=== PATIENT | male | born 1945 | race Caucasian/White ===

== ENCOUNTER 2017-08-25 16:49 | Emergency (ER) | payer MEDICARE ==
[2017-08-25 17:50] LABS: ABS Basophils 0.1 10^3/ul (0-0.2); ABS Eosinophils 0.4 10^3/ul (0-0.6); ABS Lymphocytes 2.7 10^3/ul (1.0-4.8); ABS Monocytes 1.1 10^3/ul (0-0.8); ABS Neutrophils 3.9 10^3/ul (1.5-7.7); ABS Nucleated RBC 0 10^3/ul; Eosinophil % 5.3 % (0-6); Hematocrit 43 % (42-52); Hemoglobin 14.5 g/dl (14.0-18.0); Lymphocyte % 33.2 % (25-47); Mean Corpuscular HGB Conc 33 g/dl (31-36); Mean Corpuscular Hemoglobin 31 pg (27-31); Mean Corpuscular Volume 92 fL (80-94); Mean Platelet Volume 9 um3 (7.4-10.4); Nucleated Red Blood Cells % 0; Platelet Count 220 10^3/ul (150-450); Red Blood Count 4.71 10^6/ul (4.0-5.4); Red Cell Distribution Width 15 % (10.5-15); White Blood Count 8.2 10^3/ul (3.5-10.8)
[2017-08-25 17:59] LABS: INR 2.12 (0.77-1.02)
--- NOTE | 2017-08-25 18:04 | RAD ---
HISTORY: Chest pain COMPARISONS: January 12, 2017, April 25, 2016 VIEWS: 1: frontal portable view of the chest at 5:25 PM FINDINGS: LINES AND TUBES: None. CARDIOMEDIASTINAL SILHOUETTE: The aorta is tortuous. This is stable from previous examinations. The cardiomediastinal silhouette is otherwise normal for portable technique. PLEURA: The costophrenic angles are sharp. No pleural abnormalities are noted. LUNG PARENCHYMA: The lungs are clear. ABDOMEN: The upper abdomen is clear. There is no subphrenic gas. BONES AND SOFT TISSUES: No bone or soft tissue abnormalities are noted. IMPRESSION: NO ACTIVE CARDIOPULMONARY DISEASE.
[2017-08-25 18:05] LABS: EGFR Non-African American 15.4 (>60)
--- NOTE | 2017-08-25 18:49 | ED ---
Kym Reyes Nilda, scribed for Deuce Torrez MD on 08/25/17 at 1713 . HPI Chest Pain - HPI Summary HPI Summary: This patient is a 72 year old M presenting to [facility] accompanied by with a chief complaint of constant diffuse, non-radiating CP (pressure) that began about 2 hours ago and has presently resolved. The patient rates the pain 7/10 in severity. Symptoms aggravated by nothing and alleviated by spontaneous resolution. Patient reports SOB (since yesterday), edema, and palpitations ( since yesterday). Medications include Warfarin and Lasix. - History of Current Complaint Chief Complaint: EDChestPainROMI Time Seen by Provider: 08/25/17 17:00 Hx Obtained From: Patient Onset/Duration: Started Hours Ago, Still Present Timing: Constant Initial Severity: Severe Current Severity: None Pain Intensity: 7 Pain Scale Used: 0-10 Numeric Chest Pain Location: Diffuse Chest Pain Radiates: No Character: Pressure/Squeezing Aggravating Factor(s): Nothing Alleviating Factor(s): Spontaneous Resolution Associated Signs and Symptoms: Positive: Other: - SOB, edema, palpitations - Additional Pertinent History Primary Care Physician: FOREIGN - Allergy/Home Medications Allergies/Adverse Reactions: Allergies Allergy/AdvReac Type Severity Reaction Status Date / Time zolpidem [From Ambien] Allergy Hallucinati Verified 08/25/17 17:12 ons MS Iodinated Diagnostic AdvReac See Comment Verified 09/26/14 19:57 Agents [Iodinated Diagnostic Agents] Home Medications: Home Medications Acetaminophen TAB* [Tylenol TAB*] 325 mg PO Q4H PRN 08/25/17 [History Confirmed 08/25/17] Beclomethasone 80 MCG MDI(NF) [Qvar 80 MCG MDI(NF)] 1 puff INH BID 08/25/17 [ History Confirmed 08/25/17] Carvedilol TAB* [Coreg TAB*] 6.25 mg PO BID 08/25/17 [History Confirmed 08/25/17 ] Cetirizine* [ZyrTEC 10 MG TAB*] 10 mg PO DAILY PRN 08/25/17 [History Confirmed 08/25/17] Dronedarone TAB* [Multaq TAB*] 400 mg PO BID 08/25/17 [History Confirmed ] Eszopiclone TAB(NF) [Lunesta TAB(NF)] 2 mg PO DAILY 08/25/17 [History Confirmed 08/25/17] Furosemide TAB* [Lasix TAB*] 20 mg PO DAILY 08/25/17 [History Confirmed 08/25/17 ] Meclizine TAB* [Antivert 12.5 TAB*] 25 mg PO TID 08/25/17 [History Confirmed 02/02] PMH/Surg Hx/FS Hx/Imm Hx Cardiovascular History: Reports: Hx Hypercholesterolemia, Hx Hypertension, Other Cardiovascular Problems/Disorders - HIGH CHOLESTEROL Respiratory History: Reports: Hx Asthma, Hx Sleep Apnea GI History: Reports: Hx Gastroesophageal Reflux Disease History: Reports: Hx Benign Prostatic Hyperplasia, Hx Chronic Renal Failure, Other Problems/Disorders - renal artery stenosis (stents) Denies: Hx Dialysis, Hx Kidney Infection, Hx Kidney Stones Musculoskeletal History: Reports: Hx Back Problems, Hx Orthopedic Injury - right foot ligament revision Sensory History: Reports: Hx Cataracts - surgery to both eyes, Hx Contacts or Glasses Denies: Hx Eye Injury, Hx Deafness Opthamlomology History: Reports: Hx Cataracts - surgery to both eyes, Hx Contacts or Glasses Denies: Hx Eye Injury Neurological History: Reports: Other Neuro Impairments/Disorders - L4-L5 laminectomy Psychiatric History: Reports: Hx Anxiety - Surgical History Surgery Procedure, Year, and Place: L4-L5 LAMINECTOMY 1975. Cataracts out B/l - Immunization History Date of Tetanus Vaccine: Remote Date of Influenza Vaccine: 2014 Infectious Disease History: No Infectious Disease History: Reports: Hx Shingles Denies: Traveled Outside the [place] in Last 30 Days - Family History Known Family History: Positive: Other - renal disease - Social History Alcohol Use: Rare Hx Substance Use: No Substance Use Type: Reports: None Hx Tobacco Use: No Smoking Status (MU): Never Smoked Tobacco Review of Systems Positive: Palpitations, Chest Pain - pressure, resolved Positive: Shortness Of Breath Positive: Edema All Other Systems Reviewed And Are Negative: Yes Physical Exam - Summary Physical Exam Summary: VITAL SIGNS: Reviewed. GENERAL: Patient is an obese male who is lying comfortable in the stretcher. Patient is not in any acute respiratory distress. HEAD AND FACE: No signs of trauma. No ecchymosis, hematomas or skull depressions. No sinus tenderness. EYES: PERRLA, EOMI x 2, No injected conjunctiva, no nystagmus. EARS: Hearing grossly intact. Ear canals and tympanic membranes are within normal limits. MOUTH: Oropharynx within normal limits. NECK: Supple, trachea is midline, no adenopathy, no JVD, no carotid bruit, no c- spine tenderness, neck with full ROM. CHEST: Symmetric, no tenderness at palpation LUNGS: Clear to auscultation bilaterally. No wheezing or crackles. CVS: IrRegular rate and rhythm, S1 and S2 present, no murmurs or gallops appreciated. ABDOMEN: Soft, non-tender. No signs of distention. No rebound no guarding, and no masses palpated. Bowel sounds are normal. EXTREMITIES: FROM in all major joints, no edema, no cyanosis or clubbing. NEURO: Alert and oriented x 3. No acute neurological deficits. Speech is normal and follows commands. SKIN: Dry and warm Triage Information Reviewed: Yes Vital Signs On Initial Exam: Initial Vitals Temp Pulse Resp BP Pulse Ox 99.0 F 73 18 169/91 98 08/25/17 16:52 08/25/17 16:52 08/25/17 16:52 08/25/17 16:52 08/25/17 16:52 Vital Signs Reviewed: Yes Diagnostics - Vital Signs Vital Signs Temp Pulse Resp BP Pulse Ox 08/25/17 17:07 98 08/25/17 16:52 99.0 F 73 18 169/91 98 - Laboratory Result Diagrams: 08/25/17 17:35 08/25/17 17:35 Lab Statement: Any lab studies that have been ordered have been reviewed, and results considered in the medical decision making process. - Radiology CXR Radiology Interpretation Completed By: Radiologist - CXR, per radiologist, reveals no active cardiopulmonary disease. Dr. Torrez has reviewed this radiology report. - EKG 1656 Cardiac Rate: NL EKG Rhythm: Sinus Rhythm - 60 bpm EKG Interpretation: no ST elevation Chest Pain Course/Dx - Course Assessment/Plan: This patient is a 72 year old M presenting to [facility] accompanied by with a chief complaint of constant diffuse, non-radiating CP (pressure) that began about 2 hours ago and has presently resolved. The patient rates the pain 7/10 in severity. Symptoms aggravated by nothing and alleviated by spontaneous resolution. Patient reports SOB (since yesterday), edema, and palpitations (since yesterday). Medications include Warfarin and Lasix. An EKG reveals NSR, 60 bpm, no ST elevation. CXR, per radiologist, reveals no active cardiopulmonary disease. Dr. Torrez has reviewed this radiology report. In the ED course an IV access was obtained. Patient was placed in a electronic device monitor. Patient was started with IV fluids. Labs without any significant abnormality except for his chronic renal failure. Troponin #1: 0.01, CK-MB 7.7. EKG shows a NSR a w/o ST elevations. CXR impression: No acute pathology. Patient has remained stable and has no other complaints. Because of his multiple comorbidities I discuss my physical exam, findings and test results with Dr. Charles from the hospitalist services and she agrees to admit patient to his services. Patient is hemodynamically stable alert and oriented x 3. - Chest Pain Differential Diagnosis/HQI/PQRI: Acute OK, ACS, Angina, CHF, Chest Wall, GI Disease, Lower Respiratory Infection - Diagnoses Provider Diagnoses: Chest pain, r/o acute coronary syndrome - Provider Notifications Discussed Care Of Patient With: Freeman Charles - Hospitalist Time Discussed With Above Provider: 18:34 Instructed by Provider To: Admit As Inpatient Discharge - Discharge Plan Condition: Stable Disposition: ADMITTED TO [facility] Referrals: Deuce Mccall MD [Primary Care Provider] - The documentation as recorded by the Kym rios Nilda accurately reflects the service I personally performed and the decisions made by , Deuce Torrez MD.
[2017-08-25] MEDS ORDERED: Nitroglycerin TAB 0.4 MG* 0.4 MG TAB SL ONE (19:28)
[2017-08-25] MEDS ORDERED: Aspirin EC Low Dose* 81 MG TAB.EC PO ONE (19:28)
[2017-08-25] MEDS ORDERED: Aspirin Low Dose CHEW TAB* 81 MG PO ONE ×2 (19:28→21:00)
[2017-08-25] MEDS ORDERED: Aspirin Low Dose CHEW TAB* 81 MG ONE (20:28)
[2017-08-25 20:37] VITALS: BP 166/90
== END 2017-08-25 20:20 | disposition home or self-care (01) ==
LOC: ED 16:49
DX: R07.9 Chest pain, unspecified (principal); E78.00 Pure hypercholesterolemia, unspecified; I10 Essential (primary) hypertension; K21.9 Gastro-esophageal reflux disease without esophagitis
CPT/HCPCS: 36415; 71045; 80053; 82550; 82553; 83605; 83735; 83880; 84443; 84484; 85025; 85610; 85730; 93005; 99283; A9270-GY

== ENCOUNTER 2019-04-22 13:23 | Emergency (ER) | payer MEDICARE ==
--- OUTSIDE RECORDS SUMMARY | 2019-04-22 13:31 | XMS REPORT | Summary of Care ---
:1945 Author Organization [facility] Address [address] [address] Care Team Providers Name Role Phone Bhavna Elaine Primary Care Provider Reason for Visit Reason Comments Fall Encounter Details Date Type Department Care Team Description 04/17/2019 Office Visit [facility] - Miriam Hardin, PT Falls frequently [facility] [address] [place] [address] (Primary Dx) Therapy [place], [place] [id number] [place] [address] [address] [place] [address] Allergies Active Allergy Reactions Severity Noted Date Comments Dye Intravenous Radiographic Cardiac Reaction, 03/02/2011 Imaging Contrast Respiratory Reaction Statins GI Reaction 07/17/2015 documented as of this encounter (statuses as of 04/17/2019) Medications Medication Sig Dispensed Refills Start Date End Date Status cetirizine (ZYRTEC) Take 1 Tab by mouth 30 Tab 0 12/04/2014 Active 10 MG Oral Tab DAILY. meclizine (ANTIVERT) Take 1 Tab by mouth 60 Tab 1 03/20/2015 Active 25 MG Oral Tab THREE TIMES DAILY NEEDED for dizziness/vertigo. fluticasone (FLONASE) Kinards 2 Sprays in 1 Bottle 0 07/09/2015 Active 50 MCG/ACT Nasal nose DAILY. Suspension albuterol HFA Take 2 Puffs by 1 Inhaler 2 12/18/2015 Active (VENTOLIN) 108 (90 inhalation EVERY BASE) MCG/ACT FOUR HOURS Inhalation Aero Soln NEEDED (wheezing). nadolol (CORGARD) 20 Take 1 Tab by mouth 30 Tab 5 01/31/2016 Active MG Oral Tab DAILY. Tamsulosin HCl Take 1 Cap by mouth 30 Cap 5 02/17/2016 Active (FLOMAX) 0.4 MG Oral DAILY. Cap QVAR 80 MCG/ACT INHALE 2 PUFFS BY 1 Inhaler 5 03/31/2016 Active Inhalation Aero Soln MOUTH TWICE DAILY Eszopiclone 2 MG Oral Take 1 Tab by mouth 30 Tab 5 04/08/2016 Active TabIndications: EVERY BEDTIME Chronic insomnia NEEDED (insomnia). Max Daily Amount: 2 mg. amLodipine (NORVASC) take 1 tablet by 30 Tab 3 04/13/2016 Active 5 MG Oral Tab mouth once daily terazosin (HYTRIN) 2 Take 2 Caps by 60 Cap 5 04/14/2016 Active MG Oral Cap mouth EVERY BEDTIME. documented as of this encounter (statuses as of 04/17/2019) Active Problems Problem Noted Date BPH (benign prostatic hyperplasia) 12/28/2013 CKD (chronic kidney disease), stage IV 07/09/2011 Overview: Creatinine 2.9 eGFR 07/08 22 Allergic rhinitis due to dust 07/03/2011 Hypercholesteremia 04/22/2011 Renal artery stenosis 03/02/2011 Overview: S/p bilateral stent placement 2002 Nuclear stress test negative 2002 Renovascular hypertension 03/02/2011 Depression 03/02/2011 Overview: Diagnosis Selective serotonin receptor inhibitor treatment: buproprion until 2004, then cymbalta since then Mild cognitive impairment 03/02/2011 Overview: Trial of exelon patch patient stopped medication 2010 due to lack of effect Chronic insomnia 03/02/2011 Obesity, unspecified 03/02/2011 Overview: BMI 37 8/11 documented as of this encounter (statuses as of 04/17/2019) Resolved Problems Problem Noted Date Resolved Date Sprain of lumbar region 09/30/2011 11/19/2011 Sprain of lumbar region 08/21/2011 09/30/2011 Diabetes mellitus 04/22/2011 06/01/2011 documented as of this encounter (statuses as of 04/17/2019) Immunizations Name Administration Dates Next Due Influenza (IM) Preservative Free 07/23/2014, 03/15/2013, 05/22/2011 Influenza Vaccine High Dose 04/10/2015 Influenza Virus Vaccine Pres Free 6-35 04/07/2012 Months PNEUMOCOCCAL POLYSACCHARIDE VACCINE 05/22/2011 Pneumococcal Conjugate(13 Valent) 12/11/2014 TDAP Vaccine 01/25/2012 ZOSTER (ZOSTAVAX) VACCINE 01/25/2012 documented as of this encounter Social History Tobacco Use Types Packs/Day Years Used Date Former Smoker Cigarettes 1 10 Quit: 03/02/1980 Smokeless Tobacco: Never Used Alcohol Use Drinks/Week oz/Week Comments No 0 Standard drinks or equivalent 0.0 Sex Assigned at Date Recorded Not on file Job Start Date Occupation Industry Not on file Not on file Not on file Travel History Travel Start Travel End No recent travel history available. documented as of this encounter Last Filed Vital Signs Not on filedocumented in this encounter Progress Notes Miriam Hardin, PT - 04/17/2019 4:00 PM EDT [facility] Initial Evaluation Outpatient Physical Therapy Services [facility] [address] [place] [id number] Patient: Elder Moore : 1945 Date of Service: 04/17/2019 Referring Physician: Allie Balderrama Primary Diagnosis: ICD-9-CM ICD-10-CM 1. Falls frequently V15.88 R29.6 Time In: 1600 Time Out: 1700 Subjective: He is a 73-y.o.-year-old male who presents for outpatient physical therapy with a chiefcomplaint of frequent falls which are getting worse. He has renal disease and will not go on dialysis. He was in Hospice but "didn't " so he went home in September. He can easily go into Afib and he hasaltered sensation in bilateral feet. He has bilateral edema in the feet left> right , possibly because he had foot surgery in 2002 and has scar tissue. He had lumbar surgery several years ago and isagain having low back pain. He is most bothered by calf cramping and nerve pain in the legs, his frequent falls and his low back pain. Prior Functional Status: moderate impairment Current Functional Status: moderate impairment Abuse/Neglect Screening Are you being threatened or hurt by anyone? : No FOTO Data FOTO Intake Completed: Yes Intake FS Score: 36 Predicted FS Score: 49 Objective: Past Medical History: Diagnosis Date Allergic rhinitis due to dust Asthma BPH (benign prostatic hyperplasia) 12/28/2013 CKD (chronic kidney disease), stage IV (HCC) 07/09/2011 Hypertension Renovascular hypertension 03/02/2011 Past Surgical History: Procedure Laterality Date KNEE/ANKLE ARTHROPLASTY 2006 ankle reconstruction with repair of achilles tendon SP URETERAL CATH OR STENT PLACEMENT STENT 2002 renal stent Current Outpatient Medications: albuterol HFA (VENTOLIN) 108 (90 BASE) MCG/ACT Inhalation Aero Soln, Take 2 Puffs by inhalation EVERY FOUR HOURS NEEDED (wheezing)., Disp: 1 Inhaler, Rfl: 2 amLodipine (NORVASC) 5 MG Oral Tab, take 1 tablet by mouth once daily, Disp: 30 Tab, Rfl: 3 cetirizine (ZYRTEC) 10 MG Oral Tab, Take 1 Tab by mouth DAILY., Disp: 30 Tab, Rfl: 0 Eszopiclone 2 MG Oral Tab, Take 1 Tab by mouth EVERY BEDTIME NEEDED ( insomnia). Max DailyAmount: 2 mg., Disp: 30 Tab, Rfl: 5 fluticasone (FLONASE) 50 MCG/ACT Nasal Suspension, Kinards 2 Sprays in nose DAILY., Disp: 1 Bottle, Rfl: 0 meclizine (ANTIVERT) 25 MG Oral Tab, Take 1 Tab by mouth THREE TIMES DAILY NEEDED for dizziness/vertigo., Disp: 60 Tab, Rfl: 1 nadolol (CORGARD) 20 MG Oral Tab, Take 1 Tab by mouth DAILY., Disp: 30 Tab, Rfl: 5 QVAR 80 MCG/ACT Inhalation Aero Soln, INHALE 2 PUFFS BY MOUTH TWICE DAILY, Disp: 1 Inhaler, Rfl: 5 Tamsulosin HCl (FLOMAX) 0.4 MG Oral Cap, Take 1 Cap by mouth DAILY., Disp: 30 Cap, Rfl: 5 terazosin (HYTRIN) 2 MG Oral Cap, Take 2 Caps by mouth EVERY BEDTIME., Disp: 60 Cap, Rfl: 5 Allergies Allergen Reactions Dye Intravenous Radiographic Imaging Contrast Cardiac Reaction and Respiratory Reaction Statins GI Reaction He can rise from a chair without his hands He cannot tolerate 6 min walk testing He can basically walk about 150ft He requires a spc for safety. He has memory issues. He has renal disease. He can get around in the house and states that he doesn't tend to fall in the house but outside in the yard has real issues. He is unable to sleep because of leg "nerve type pain" Plan of Care Plan of Care Start Date: 04/17/19 Plan of Care Expiration Date: 07/17/19 Prior Function Comment: moderate impairment Current Function Comment: moderate impairment Rehabilitative Prognosis: Guarded Planned Intervention(s): PT Tulio High Complexity (36315) Frequency of Treatments: 1-2 times a week Duration of Treatments: 2 months History Components: High (3 personal factors and/or comorbidities) Examination of Body Systems/Components: High (Addressing a total of 4 or more elements) Clinical Presentation: Unstable - unstable and unpredictable characteristics - safety risk (High) Clinical Decision Making (complexity): High Treatment Number: 1 Total Time of Evaluation: 60 Outcome Tools Used: foto Assessment: 73 year old male known to our office. He has a myriad of medical concerns. Unable to determine if the leg neural pain is stenosis from the low back, neuropathy from renal disease or just from bilateral edema. I will work on the legs and try to improve circulation and reduce pain. He has benefit from taking Mg but only does this before bed and wakes at 3am with same nerve pain. I wrote down for him to ask the referring doctor or his PCP if he is allowed to take more Mg or consider neruotin for nerve pain. If no benefit after 3-4 visits will refer him back to his physician. Was Physical Therapy treatment performed at this visit? No Plan for Next Visit: Work on legs. Ensure he has cardiac meds with him. Evaluation Complexity Assessment: History Components: High (3 personal factors and/or comorbidities) Examination of Body Systems/Components: High (Addressing a total of 4 or more elements) Clinical Presentation: Unstable - unstable and unpredictable characteristics - safety risk (High) Clinical Decision Making (complexity): High Treatment Number: 1 Total Time of Evaluation: 60 Total Number of Timed Code Treatment Minutes: 0 Author: Miriam Hardin, JERRY 04/17/2019 16:52 documented in this encounter Plan of Treatment Date Type Specialty Care Team Description 04/24/2019 Office Visit Physical Therapy Miriam Hardin, PT [facility] [place] [address] [phone] 05/01/2019 Office Visit Physical Therapy Miriam Hardin, PT [address] [place] [address] [phone] 05/08/2019 Office Visit Physical Therapy LucreciaMiriam garcia, PT [address] [place] [address] [phone] 05/15/2019 Office Visit Physical Therapy Miriam Hardin, PT [address] [place] [address] [phone] Health Maintenance Due Date Last Done Comments DEPRESSION SCREENING 1957 HIV SCREENING 1960 FALL RISK ASSESSMENT 2010 ZOSTER IMMUNIZATION SERIES 03/21/2012 01/25/2012 (2 of 3) COLONOSCOPY SCREENING 05/09/2016 05/09/2013 INFLUENZA VACCINE (#1) 2019 04/10/2015, 07/23/2014, 03/15/2013, Additional history exists PNEUMOCOCCAL 65+YRS Completed 12/11/2014, 05/22/2011 HPV IMMUNIZATION SERIES Aged Out No longer eligible based on patient's age to complete this topic MENINGOCOCCAL VACCINE IMM Aged Out No longer eligible based on patient's age to complete this topic documented as of this encounter Goals Goal Patient Goal Associated Recent Patient-Stated? Author Type Problems Progress Blood Pressure Blood Pressure Renovascular 112/80 No Galjacintoova, < 140/90 hypertension (04/08/2016 Bhavna, 10:54 AM EDT) Note: Hypertension Care Plan Based on the patient's clinical history and according to JNC 8 guidelines target blood pressure goal is less than 140/90. Based on the patient's last blood pressure of BP: 146/102 mmHg the patient is at above goal. As your provider, it is important that I advise you regarding: your current medications and help you with any challenges you may face taking your medications as directed (ex. instructions, cost, side effects, and interactions). Important lifestyle changes: dietary sodium reduction your clinical goals and how you can achieve success: weight reduction and diet improvements medication management: adjusted medications as appropriate patient education/self-management tools provided: Yes To successfully manage my Hypertension I will: monitor my blood pressure daily, understanding that my goal is less than 140/ 90 per my healthcare provider's recommendation. I will schedule an appointment with my provider if consistent abnormal readings greater than 160/100. take medications every day as prescribed by my healthcare provider and if unable to take them I will discuss with my provider. monitor for symptoms of chest pain, chest tightness/pressure, irregular heartbeat, persistent dizziness, radiating arm pain, and neck or jaw pain. If any of these symptoms are noticed I will seek medical attention immediately by calling 911 exercise/walk 30 minutes 5 day(s) per week. If I experience chest pain, chest tightness, or shortness of breath, I will seek medical attention immediately. follow a diet rich in fruits, vegetables, and low-fat dairy products with reduced content of saturated & total fat. I will reduce my sodium intake daily. An example is the DASH diet. To obtain more information please refer to the DASH Eating Plan listed in Educational Resources. record my blood pressure results. eGTabtorrie is safe and secure way for you to do this in your medical record online. try to obtain an ideal body weight. My recent weight was Weight: 251 lb ( 113.853 kg). My weight loss goal for my next office visit is 145. limit alcohol consumption. For men two drinks per day and women one drink per day. if currently smoking, will discuss how to quit smoking with my healthcare provider and work towards quitting. Educational Resources: National Heart, Lung, & Blood [employer] http://nhlbi.nih.gov/hbp/index.html The DASH Diet Eating Plan http://www.nhlbi.nih.gov/health/health-topics/ topics/dash/ Academy of Nutrition & DIetetics http://eatright.org National Smoking Cessation Site http://smokefree.gov documented as of this encounter Results Not on filedocumented in this encounter Visit Diagnoses Diagnosis Falls frequently - Primary Personal history of fall documented in this encounter Guarantor Name Account Type Relation to Date of Phone Billing Patient Address Elder Moore Personal/Family 1945 [address] ([address]) [address] [phone] [place], [place] (Work) [id number] documented as of this encounter
--- OUTSIDE RECORDS SUMMARY | 2019-04-22 13:31 | XMS REPORT | Continuity of Care Document ---
:1945 External Reference #:[id number] Author Name Seymour Rivas MD (transmitted by agent of provider Rachelle Patten) Address [address] [address] Care Team Providers Name Role Phone Tonio Carrera MD - Nephrology Care Team Information Licensed Guide Tiffanie Booth MD - Internal Medicine Care Team Information Licensed Guide Problems Active Problems Provider Date Paroxysmal atrial fibrillation Allie Balderrama M.D. Onset: 05/01/2016 Disturbance in sleep behavior Viviane Christy MD Onset: 2016 Obesity Viviane Christy MD Onset: 2016 Obstructive sleep apnea syndrome Viviane Christy MD Onset: 09/01/2016 Essential hypertension Allie Balderrama M.D. Onset: 10/20/2016 Supraventricular premature beats Allie Balderrama M.D. Onset: 10/20/2016 Insomnia Stacey Barba DNP, RN, KATELIN-BC Onset: 04/23/2017 Hypersomnia Stacey Barba DNP, RN, CAFETERIA ATTENDANT-BC Onset: 04/23/2017 Chronic kidney disease stage 4 Chester Penn M.D.,FACDu Onset: 01/07/2018 Chronic sinusitis Chester Penn M.D.,FACP Onset: 01/07/2018 Note: and afrin dependence Hyperlipidemia Allie Balderrama M.D. Onset: 05/06/2018 Social History Type Date Description Comments Sex Unknown Tobacco Use Start: Unknown Never Smoked Cigarettes ETOH Use 02/17/2018 Denies alcohol use Recreational Drug Use Denies Drug Use Tobacco Use Start: Unknown End: Patient is a former smoker Unknown Smoking Status Reviewed: 03/15/19 Patient is a former smoker Exercise Type/Frequency Exercises rarely Allergies, Adverse Reactions, Alerts Active Allergies Reaction Severity Comments Date Sulfa Antibiotics 05/01/2016 IV Contrast Dye 05/01/2016 Statins Myalgias Lipitor 05/01/2016 Dust, Mites 10/12/2016 Amlodipine swelling feet 10/14/2016 Environmental Tree leaves, cats, dogs, grasses 04/23/2017 Medications Active Medications SIG Qnty Indications Ordering Date Provider Meclizine HCL 1 tablet every 8 30tabs Tiffanie Booth MD 01/16/2019 25mg hours as needed Tablets for vertigo Ondansetron HCL one by mouth 30tabs Tiffanie Booth MD 01/16/2019 4mg every 8 hours as Tablets needed for nausea Ropinirole HCL take one tablet 30tabs Tiffanie Booth MD 11/11/2018 0.25mg 1-3 hours before Tablets bedtime Hyoscyamine Sulfate 1 sl tid prn 30tabs Chester Yates 07/27/2018 SL aura Penn M.D.,FACP 0.125mg Tablets Sub Hydrocodone-Acetamino 1 by mouth every 30tabs Tiffanie Booth MD 07/05/2018 phen 4 hours as 5-325mg Tablets needed for pain Medical Marijuana 1 tablets every Allie Balderrama, 05/06/2018 8 hours M.D. 8.0THC/8.0 CBD Lunesta take 1 tablet by 30tabs Tiffanie Booth MD 04/15/2018 3mg Tablets mouth at bedtime for insomnia - maximum daily dose of 1 per day Morphine Sulfate 5 mg every 3 15ml Alysia Varn, 04/12/2018 (Concentrate) hours as needed N.P. 20mg/ml for pain or sob Solution as directed by hospice nurse Amiodarone HCL 1/2 tab by mouth 90tabs Allie Balderrama, 04/06/2018 200mg every day. for M.D. Tablets afib may take extra tablets up to 800mg in one day. Torsemide 1 tab by mouth 90tabs R06.02 Tiffanie Booth MD 01/07/2018 20mg Tablets daily. may take 2 tabs daily as needed for leg swelling or sob up to 3x week. Cpap Mask And cpap supplies - 1units Deuce Núñez 11/23/2017 Supplies Stefany morales M.D. Device cushion, tubing, filters, for sleep apnea dx 780.57 Proair HFA 2 puffs by mouth 8.5units Deuce EscalonaRupa 05/24/2017 108(90Base) twice daily prn Abram Mccall mcg/Act Aerosol Carvedilol 2 tabs by mouth 180tabs Allie Balderrama, 10/15/2016 3.125mg twice daily M.DRupa Tablets Warfarin Sodium 1 by mouth every 120tabs Allie Balderrama, 4mg night and as M.D. Tablets directed. Mucinex Maximum prn Unknown Strength 1200mg Tablets ER 12HR Acetaminophen 2 tablets by Unknown 325mg mouth every Tablets evening prn Xyzal Allergy 24HR Once daily as Unknown 5mg needed Tablets Cartia XT 1 tab by mouth q 90caps Allie Balderrama, 120mg Caps ER daily. M.D. 24HR Leg Cramp Relief daily as needed Unknown Tablets Advair HFA 2 puffs bid Unknown 115-21mcg/Act Aerosol Medications Administered in Office Medication SIG Qnty Indications Ordering Provider Date Technetium TC 99M Angelito Bustos DO [facility] 02/01/2018 Tetrofosmin, Per Unit Dose Up To 40 Millicuries Injection Technetium TC 99M [facility] Schedule 05/14/2016 Tetrofosmin, Per Unit Dose Up To 40 Millicuries Injection Technetium TC 99M Angelito Bustos DO [facility] 05/12/2016 Tetrofosmin, Per Unit Dose Up To 40 Millicuries Injection Immunizations CPT Code Status Date Vaccine Lot # [id number] Given 05/24/2017 Influenza Virus Vaccine, Quadrivalent, Split, [id number] Preservative Free 12994 Given 12/11/2014 Pneumococcal Conjugate Vaccine 13 Valent For Intramuscular Use 44430 Given 01/25/2012 Zoster (Zostavax) 28057 Given 01/25/2012 Tdap - Tetanus/Diptheria/Acellular Pertussis 61123 Given 05/22/2011 Pneumonia Vaccine Vital Signs Date Vital Result Comment 03/15/2019 1:11pm Height 71 inches 5'11" Weight 266.00 lb BP Systolic Sitting 190 mmHg L arm BP Diastolic Sitting 101 mmHg L arm O2 % BldC Oximetry 98 % BMI (Body Mass Index) 37.1 kg/m2 12/30/2018 9:14am Height 71 inches 5'11" Weight 266.00 lb Heart Rate 68 /min reg BP Systolic Sitting 150 mmHg Lue lg cuff BP Diastolic Sitting 84 mmHg Lue lg cuff BP Systolic Standing 142 mmHg Lue reg cuff BP Diastolic Standing 82 mmHg Lue reg cuff BMI (Body Mass Index) 37.1 kg/m2 Ejection Fraction 60-65% 01/25/18 echo Results Test Date Facility Test Result H/L Range Note Inr/Protime 03/13/2019 [facility] Inr 1.90 High 0.82-1.[address] [place] [address] [phone] Inr/Protime 02/21/2019 [facility] Inr 1.79 High 0.82-1.[address] [place] [address] [phone] Inr/Protime 02/08/2019 [facility] Inr 2.18 High 0.82-1.[address] [place] [address] [phone] Inr/Protime 01/30/2019 [facility] Inr 1.97 High 0.82-1.[address] [place] [address] [phone] Inr/Protime 01/23/2019 [facility] Inr 1.79 High 0.82-1.[address] [place] [address] [phone] Inr/Protime 01/16/2019 [facility] Inr 1.39 High 0.82-1.[address] [place] [address] [phone] Inr/Protime 01/05/2019 [facility] Inr 3.13 High 0.82-1.[address] [place] [address] [phone] Inr/Protime 12/21/2018 [facility] Inr 2.84 High 0.82-1.[address] [place] [address] [phone] Inr/Protime 12/15/2018 [facility] Inr 2.45 High 0.82-1.[address] [place] [address] [phone] Urinalysis Profile 12/06/2018 [facility] Urine Color Yellow [address] [place] [address] [phone] Urine Appearance Clear Urine Specific [place] 1.017 Normal 1.010-1.030 Urine pH 5.0 Normal 5-9 Urine Urobilinogen Negative Negative Urine Ketones Negative Negative Urine Protein Negative Negative Urine Leukocytes Negative Negative Urine Blood Negative Negative Urine Nitrite Negative Negative Urine Bilirubin Negative Negative Urine Glucose Negative Negative Urine Culture And 12/06/2018 [facility] Urine SEE RESULT [address] [place] [address] [phone] Comp Metabolic 12/06/2018 [facility] Sodium 141 mmol/L Normal 135- Panel [address] [place] [address] [phone] Potassium 4.3 mmol/L Normal 3.5-5.0 Chloride 105 mmol/L Normal 101-111 Co2 Carbon Dioxide 27 mmol/L Normal 22-32 Anion Gap 9 mmol/L Normal 2-11 Glucose 143 mg/dL High 70-100 Blood Urea Nitrogen 45 mg/dL High 6-24 Creatinine 4.84 mg/dL High 0.67-1.17 BUN/Creatinine Ratio 9.3 Normal 8-20 Calcium 9.1 mg/dL Normal 8.6-10.3 Total Protein 6.4 g/dL Normal 6.4-8.9 Albumin 3.9 g/dL Normal 3.2-5.2 Globulin 2.5 g/dL Normal 2-4 Albumin/Globulin Ratio 1.6 Normal 1-3 Total Bilirubin 0.40 mg/dL Normal 0.2-1.0 Alkaline Phosphatase 83 U/L Normal 34-104 Alt 17 U/L Normal 7-52 Ast 16 U/L Normal 13-39 Egfr Non- 11.9 >60 Egfr 14.4 >60 11 Laboratory test 12/06/2018 [facility] Thyroxine 6.70 Normal 6.09-12.[address] g/[place] [address] [phone] TSH (Thyroid Stim Horm) 3.59 mcIU/mL Normal 0.34-5.60 Free T4 (Free Thyroxine) 1.06 ng/dL Normal 0.61-1.12 Inr/Protime 12/01/2018 [facility] Inr 2.19 High 0.82-1.[address] [place] [address] [phone] Inr/Protime 11/23/2018 [facility] Inr 3.04 High 0.82-1.[address] [place] [address] [phone] Inr/Protime 11/16/2018 [facility] Inr 3.79 High 0.82-1.[address] [place] [address] [phone] Inr/Protime 11/11/2018 [facility] Inr 2.62 High 0.82-1.09 [address] [place], [place] [address] [phone] CBC Auto Diff 11/11/2018 [facility] White Blood 7.0 Normal 3.5 -10.8 Count 10^3/[place] [address] [phone] Red Blood Count 4.81 10^6/uL Normal 4.18-5.48 Hemoglobin 14.6 g/dL Normal 14.0-18.0 Hematocrit 45 % Normal 36-46 Mean Corpuscular Volume 93 fL Normal 80-94 Mean Corpuscular Hemoglobin 30 pg Normal 27-31 Mean Corpuscular HGB Conc 33 g/dL Normal 31-36 Red Cell Distribution Width 16 % High 10.5-15 Platelet Count 223 10^3/uL Normal 150-450 Mean Platelet Volume 9.2 fL Normal 7.4-10.4 Abs Neutrophils 3.3 10^3/uL Normal 1.5-7.7 Abs Lymphocytes 2.4 10^3/uL Normal 1.0-4.8 Abs Monocytes 0.9 10^3/uL High 0-0.8 Abs Eosinophils 0.4 10^3/uL Normal 0-0.6 Abs Basophils 0 10^3/uL Normal 0-0.2 Abs Nucleated RBC 0 10^3/uL Granulocyte % 46.5 % Lymphocyte % 34.8 % Monocyte % 12.8 % Eosinophil % 5.2 % Basophil % 0.7 % Nucleated Red Blood Cells % 0.1 Comp Metabolic 11/11/2018 [facility] Sodium 142 mmol/L Normal 135-145 Panel [address] [place] [address] [phone] Potassium 4.4 mmol/L Normal 3.5-5.0 Chloride 106 mmol/L Normal 101-111 Co2 Carbon Dioxide 28 mmol/L Normal 22-32 Anion Gap 8 mmol/L Normal 2-11 Glucose 119 mg/dL High 70-100 Blood Urea Nitrogen 50 mg/dL High 6-24 Creatinine 4.71 mg/dL High 0.67-1.17 BUN/Creatinine Ratio 10.6 Normal 8-20 Calcium 9.1 mg/dL Normal 8.6-10.3 Total Protein 6.4 g/dL Normal 6.4-8.9 Albumin 4.1 g/dL Normal 3.2-5.2 Globulin 2.3 g/dL Normal 2-4 Albumin/Globulin Ratio 1.8 Normal 1-3 Total Bilirubin 0.50 mg/dL Normal 0.2-1.0 Alkaline Phosphatase 88 U/L Normal 34-104 Alt 22 U/L Normal 7-52 Ast 15 U/L Normal 13-39 Egfr Non- 12.2 >60 Egfr 14.8 >60 16 Iron & Iron Binding 11/11/2018 [facility] Iron 86 g/dL Normal 50-212 [address] [place] [address] [phone] Unsaturated Iron Binding < 292 g/dL Total Iron Binding Capacity 307 g/dL Normal 250-450 Transferrin 219 mg/dL Normal 203-362 % Iron Saturation 28 % Normal 15-55 Laboratory test 11/11/2018 [facility] Magnesium 2.3 mg/dL Normal 1.9-2.7 finding [address] [place] [address] [phone] Inr/Protime 11/01/2018 [facility] Inr 2.54 High 0.77-1.02 [address] [place] [address] [phone] Inr/Protime 10/20/2018 [facility] Inr 2.11 High 0.77-1.02 [address] [place] [address] [phone] Inr/Protime 10/11/2018 [facility] Inr 1.33 High 0.77-1.02 [address] [place] [address] [phone] Inr/Protime 09/27/2018 [facility] Inr 1.64 High 0.77-1.02 [place] [address] [phone] Inr/Protime 09/22/2018 [facility] Inr 2.75 High 0.77-1.02 [place] [address] [phone] Inr/Protime 09/16/2018 [facility] Inr 3.22 High 0.77-1.02 [place] [address] [phone] 1 Standard intensity warfarin therapeutic range: 2.0-3.0 High intensity warfarin therapeutic range: 2.5-3.5 2 Standard intensity warfarin therapeutic range: 2.0-3.0 High intensity warfarin therapeutic range: 2.5-3.5 3 Standard intensity warfarin therapeutic range: 2.0-3.0 High intensity warfarin therapeutic range: 2.5-3.5 4 Standard intensity warfarin therapeutic range: 2.0-3.0 High intensity warfarin therapeutic range: 2.5-3.5 5 Standard intensity warfarin therapeutic range: 2.0-3.0 High intensity warfarin therapeutic range: 2.5-3.5 6 Standard intensity warfarin therapeutic range: 2.0-3.0 High intensity warfarin therapeutic range: 2.5-3.5 7 Standard intensity warfarin therapeutic range: 2.0-3.0 High intensity warfarin therapeutic range: 2.5-3.5 8 Standard intensity warfarin therapeutic range: 2.0-3.0 High intensity warfarin therapeutic range: 2.5-3.5 9 Standard intensity warfarin therapeutic range: 2.0-3.0 High intensity warfarin therapeutic range: 2.5-3.5 10 SEE RESULT BELOW Name: BLAYNE TODD: [address]: Allie Balderrama MD Acct: [id number] Unit: [id number] AGE: 73 Location: [facility] Re12/06/18 SEX: M Status: REG REF SPEC: [id number] ROBERTO: 12/06/[address]: Allie Balderrama MD REQ: [id number] RECD: 12/06/18 STATUS: COMP OTHR DR: Tiffanie Booth MD _ SOURCE: URINE SPDESC: ORDERED: Urine Culture Urine Source: Random Procedure Result Reported Site Urine Culture Final 12/07/18- 806 ML No Growth (<1,000 CFU/mL) * ML - Main Lab . END OF REPORT DEPARTMENT OF PATHOLOGY, [address] [place] [address] Baldemar Rodgers M.D. Director [facility] # [id number] 11 Because ethnic data is not always readily available, this report includes an eGFR for both -Americans and non- Americans. The National Kidney Disease Education Program (NKDEP) does not endorse the use of the MDRD equation for patients that are not between the ages of 18 and 70, are , have extremes of body size, muscle mass, or nutritional status, or are non- or non-. According to the National Kidney Foundation, irrespective of diagnosis, the stage of the disease is based on the level of kidney function: Stage Description GFR(mL/min/1.73 m(2)) 1 Kidney damage with normal or decreased GFR 90 2 Kidney damage with mild decrease in GFR 60-89 3 Moderate decrease in GFR 30-59 4 Severe decrease in GFR 15-29 5 Kidney failure <15 (or dialysis) 12 Standard intensity warfarin therapeutic range: 2.0-3.0 High intensity warfarin therapeutic range: 2.5-3.5 13 Standard intensity warfarin therapeutic range: 2.0-3.0 High intensity warfarin therapeutic range: 2.5-3.5 14 Standard intensity warfarin therapeutic range: 2.0-3.0 High intensity warfarin therapeutic range: 2.5-3.5 15 Standard intensity warfarin therapeutic range: 2.0-3.0 High intensity warfarin therapeutic range: 2.5-3.5 16 Because ethnic data is not always readily available, this report includes an eGFR for both -Americans and non- Americans. The National Kidney Disease Education Program (NKDEP) does not endorse the use of the MDRD equation for patients that are not between the ages of 18 and 70, are , have extremes of body size, muscle mass, or nutritional status, or are non- or non-. According to the National Kidney Foundation, irrespective of diagnosis, the stage of the disease is based on the level of kidney function: Stage Description GFR(mL/min/1.73 m(2)) 1 Kidney damage with normal or decreased GFR 90 2 Kidney damage with mild decrease in GFR 60-89 3 Moderate decrease in GFR 30-59 4 Severe decrease in GFR 15-29 5 Kidney failure <15 (or dialysis) Procedures Date Code Description Status 12/05/2018 51691 EKG Tracing & Interpretation Completed Medical Devices Description No Information Available Encounters Type Date Location Provider Dx Diagnosis Office Visit 12/30/2018 [facility] Ngozi Bullard, I48.0 Paroxysmal atrial 9:30a Of [employer] N.P. fibrillation N18.4 Chronic kidney disease, stage 4 (severe) I12.9 Hypertensive chronic kidney disease w stg 1-4/unsp chr kdny I44.0 Atrioventricular block, first degree Office Visit 12/05/2018 2:40p [facility] Allie Balderrama, I48.0 Paroxysmal atrial Of [employer] M.D. fibrillation N18.4 Chronic kidney disease, stage 4 (severe) R10.84 Generalized abdominal pain M54.5 Low back pain Office Visit 11/11/2018 11:20a [facility] Tiffanie Booth MD G47.62 Sleep related Medicine - Ccmob leg cramps N18.6 End stage renal disease Assessments Date Code Description Provider 03/15/2019 I48.0 Paroxysmal atrial fibrillation Seymour Rivas MD 03/15/2019 I12.9 Hypertensive chronic kidney disease with Seymour Rivas MD stage 1 through sta 03/15/2019 G47.62 Sleep related leg cramps Seymour Rivas MD 03/15/2019 I70.1 Atherosclerosis of renal artery Seymour Rivas MD 03/15/2019 N18.4 Chronic kidney disease, stage 4 (severe) Seymour Rivas MD 12/30/2018 I48.0 Paroxysmal atrial fibrillation Ngozi Bullard N.P. 12/30/2018 N18.4 Chronic kidney disease, stage 4 (severe) Ngozi Bullard N.P. 12/30/2018 I12.9 Hypertensive chronic kidney disease with Ngozi Bullard, N.P. stage 1 through sta 12/30/2018 I44.0 Atrioventricular block, first degree Ngozi Bullard N.P. 12/05/2018 I48.0 Paroxysmal atrial fibrillation Allie Balderrama M.D. 12/05/2018 N18.4 Chronic kidney disease, stage 4 (severe) Allie Balderrama M.D. 12/05/2018 R10.84 Generalized abdominal pain Allie Balderrama M.D. 12/05/2018 M54.5 Low back pain Allie Balderrama M.D. 11/11/2018 G47.62 Sleep related leg cramps Tiffanie Booth MD 11/11/2018 N18.6 End stage renal disease Tiffanie Booth MD Plan of Treatment Future Appointment(s):06/14/2019 1:00 pm - Seymour Rivas MD at [facility] Alcmfqecfm89/17/2019 10:30 am - Allie Balderrama M.D. at [facility] - Seymour Rivas MDI48.0 Paroxysmal atrial teiekrhrhshaX69.9 Hypertensive chronic kidney disease with stage 1 through staG47.62 Sleep related leg mmzyewO62.1 Atherosclerosis of renal claifaN02.4 Chronic kidney disease, stage 4 (severe)Follow up:3 months Functional Status Description No Information Available Mental Status Description No Information Available Referrals Description No Information Available
--- OUTSIDE RECORDS SUMMARY | 2019-04-22 13:31 | XMS REPORT | Continuity of Care Document ---
:1945 External Reference #:[id number] Author Name Tiffanie Booth MD (transmitted by agent of provider Machelle Mena) Address [address] [facility], [address] [place] [id number] Care Team Providers Name Role Phone Tonio Carrera MD - Nephrology Care Team Information A Class Lineman Tiffanie Booth MD - Internal Medicine Care Team Information A Class Lineman [phone] Problems Active Problems Provider Date Paroxysmal atrial fibrillation Allie Balderrama M.D. Onset: 05/01/2016 Disturbance in sleep behavior Viviane Christy MD Onset: 2016 Obesity Viviane Christy MD Onset: 2016 Obstructive sleep apnea syndrome Viviane Christy MD Onset: 09/01/2016 Essential hypertension Allie Balderrama M.D. Onset: 10/20/2016 Supraventricular premature beats Allie Balderrama M.D. Onset: 10/20/2016 Insomnia Stacey Barba DNP, RN, KATELIN- Onset: 04/23/2017 Hypersomnia Stacey Barba DNP, RN, PLATE MA[employer]ER ZINC-BC Onset: 04/23/2017 Chronic kidney disease stage 4 Chester Penn M.D.,FACP Onset: 01/07/2018 Chronic sinusitis Chester Penn M.D.,FACP Onset: 01/07/2018 Note: and afrin dependence Hyperlipidemia Allie Balderrama M.D. Onset: 05/06/2018 Social History Type Date Description Comments Sex Unknown Tobacco Use Start: Unknown Never Smoked Cigarettes ETOH Use 02/17/2018 Denies alcohol use Recreational Drug Use Denies Drug Use Tobacco Use Start: Unknown End: Patient is a former smoker Unknown Smoking Status Reviewed: 03/16/19 Patient is a former smoker Exercise Type/Frequency [...] Sulfate 5 mg every 3 15ml Alysia Varmolly, 04/12/2018 (Concentrate) hours as needed N.P. 20mg/ml [...] week. [facility] Deuce N[facility] 11/23/2017 Supplies Stefany morales M.D. Device cushion, tubing, filters, for sleep apnea dx 780.57 Proair HFA 2 puffs by mouth 8.5units Deuce E. 05/24/2017 108(90Base) twice daily prn Abram Mccall mcg/Act Aerosol Carvedilol 2 tabs by mouth 180tabs Allie Balderrama, 10/15/2016 3.125mg twice daily M.D. Tablets Warfarin Sodium 1 by mouth every [...] Date Technetium TC 99M Angelito Bustos DO [facility] 02/01/2018 Tetrofosmin, Per Unit Dose Up To 40 Millicuries Injection Technetium TC 99M [facility] Schedule 05/14/2016 Tetrofosmin, Per Unit Dose Up To 40 Millicuries Injection Technetium TC 99M Angelito Bustos DO [facility] 05/12/2016 Tetrofosmin, Per Unit Dose Up To 40 Millicuries Injection Immunizations CPT Code Status Date Vaccine Lot # 22610 Given 05/24/2017 Influenza Virus Vaccine, Quadrivalent, Split, [id number] Preservative Free 83423 Given 12/11/2014 Pneumococcal Conjugate Vaccine 13 Valent For Intramuscular Use 41869 Given 01/25/2012 Zoster (Zostavax) 78292 Given 01/25/2012 Tdap - Tetanus/Diptheria/Acellular Pertussis 28660 Given 05/22/2011 Pneumonia Vaccine Vital Signs Date Vital Result Comment 03/16/2019 2:38pm Height 71 inches 5'11" Weight 263.00 lb Heart Rate 67 /min BP Systolic 140 mmHg BP Diastolic 82 mmHg Body Temperature 98.1 F O2 % BldC Oximetry 97 % BMI (Body Mass Index) 36.7 kg/m2 03/15/2019 1:11pm Height 71 inches 5'11" Weight 266.00 lb BP Systolic Sitting 190 mmHg L arm BP Diastolic Sitting 101 mmHg L arm O2 % BldC Oximetry 98 % BMI (Body Mass Index) 37.1 kg/m2 Results Test Date Facility Test Result H/L Range Note Inr/Protime 03/13/2019 [facility] Inr 1.90 High 0.82-1.[address] [place] [address] [phone] Inr/Protime 02/21/2019 [facility] Inr 1.79 High 0.82-1.[address] [place] [address] [phone] Inr/Protime 02/08/2019 [facility] Inr 2.18 High 0.82-1.[address] [place] [address] [phone] Inr/Protime 01/30/2019 [facility] Inr 1.97 High 0.82-1.[address] [place] [address] [phone] Inr/Protime 01/23/2019 [facility] Inr 1.79 High 0.82-1.[address] [place] [address] [phone] Inr/Protime 01/16/2019 [facility] Inr 1.39 High 0.82-1.[address] [place] [address] [phone] Inr/Protime 01/05/2019 [facility] Inr 3.13 High 0.82-1.[address] [place] [address] [phone] Inr/Protime 12/21/2018 [facility] Inr 2.84 High 0.82-1.[address] [place] [address] [phone] Inr/Protime 12/15/2018 [facility] Inr 2.45 High 0.82-1.[address] [place] [address] [phone] Urinalysis Profile 12/06/2018 [facility] Urine Color Yellow [address] [place] [address] [phone] Urine Appearance Clear Urine Specific [place] 1.017 Normal 1.010-1.030 Urine pH 5.0 Normal 5-9 Urine Urobilinogen Negative Negative Urine Ketones Negative Negative Urine Protein Negative Negative Urine Leukocytes Negative Negative Urine Blood Negative Negative Urine Nitrite Negative Negative Urine Bilirubin Negative Negative Urine Glucose Negative Negative Urine Culture And 12/06/2018 [facility] Urine SEE RESULT [address] [address] [phone] Comp Metabolic 12/06/2018 [facility] Sodium 141 mmol/L Normal 135- Panel [address] [place] [address] [phone] Potassium 4.3 mmol/L Normal 3.5-5.0 Chloride 105 [...] Egfr 14.4 >60 11 Laboratory test 12/06/2018 [facility] Thyroxine 6.70 Normal 6.09-12.[address] g/[place] [address] [phone] TSH (Thyroid Stim Horm) 3.59 mcIU/mL Normal 0.34-5.60 Free T4 (Free Thyroxine) 1.06 ng/dL Normal 0.61-1.12 Inr/Protime 12/01/2018 [facility] Inr 2.19 High 0.82-1.[address] [place] [address] [phone] Inr/Protime 11/23/2018 [facility] Inr 3.04 High 0.82-1.[address] [place] [address] [phone] Inr/Protime 11/16/2018 [facility] Inr 3.79 High 0.82-1.[address] [place] [address] [phone] Inr/Protime 11/11/2018 [facility] Inr 2.62 High 0.82-1.[address] [place] [address] [phone] CBC Auto Diff 11/11/2018 [facility] White Blood 7.0 Normal 3.5 -10.[address] Count 10^3/[place] [address] [phone] Red Blood Count 4.81 10^6/uL Normal 4.18-5.48 [...] Blood Cells % 0.1 Comp Metabolic 11/11/2018 [facility] Sodium 142 mmol/L Normal 135-145 Panel [address] [place] [address] [phone] Potassium 4.4 mmol/L Normal 3.5-5.0 Chloride 106 [...] >60 16 Iron & Iron Binding 11/11/2018 [facility] Iron 86 g/dL Normal 50-212 [address] [place] [address] [phone] Unsaturated Iron Binding < 292 g/dL Total Iron Binding Capacity 307 g/dL Normal 250-450 Transferrin 219 mg/dL Normal 203-362 % Iron Saturation 28 % Normal 15-55 Laboratory test 11/11/2018 [facility] Magnesium 2.3 mg/dL Normal 1.9-2.7 finding [address] [place] [address] [phone] Inr/Protime 11/01/2018 [facility] Inr 2.54 High 0.77-1.02 [address] [place] [address] [phone] Inr/Protime 10/20/2018 [facility] Inr 2.11 High 0.77-1.02 [address] [place] [address] [phone] Inr/Protime 10/11/2018 [facility] Inr 1.33 High 0.77-1.02 [address] [place] [address] [phone] Inr/Protime 09/27/2018 [facility] Inr 1.64 High 0.77-1.02 [address] [place] [address] [phone] Inr/Protime 09/22/2018 [facility] Inr 2.75 High 0.77-1.02 [address] [place] [address] [phone] Standard intensity warfarin therapeutic range: 2.0-3.0 [...] 2.5-3.5 10 SEE RESULT BELOW Name: BLAYNE TODD : [address]: Allie Balderrama MD Acct: [id number] Unit: [id number] AGE: 73 Location: [facility] Re12/06/18 SEX: M Status: REG REF SPEC: [id number] ROBERTO: 12/06/[address] [facility] [address]: Allie Balderrama MD REQ: [id number] RECD: 12/06/18 STATUS: JOYCE MAYO DR: Tiffanie Booth MD _ SOURCE: URINE SPDESC: ORDERED: Urine Culture Urine Source: Random Procedure Result Reported Site Urine Culture Final 12/07/18806 ML No Growth (<1,000 CFU/mL) * ML - Main Lab . END OF REPORT DEPARTMENT OF PATHOLOGY, [address] [place] [address] Baldemar Rodgers M.D. Director [facility] # [id number] 11 Because ethnic data is not always [...] dialysis) Procedures Date Code Description Status 12/05/2018 01730 EKG Tracing & Interpretation Completed Medical Devices Description No Information Available Encounters Type Date Location Provider Dx Diagnosis Office Visit 12/30/2018 [facility] Ngozi Bullard, I48.0 Paroxysmal atrial 9:30a Of Radio Reporter N.P. fibrillation N18.4 Chronic kidney disease, stage 4 (severe) I12.9 Hypertensive chronic kidney disease w stg 1-4/unsp chr kdny I44.0 Atrioventricular block, first degree Office Visit 12/05/2018 2:40p [facility] Allie Balderrama, I48.0 Paroxysmal atrial Of Radio Reporter M.D. fibrillation N18.4 Chronic kidney disease, stage 4 (severe) R10.84 Generalized abdominal pain M54.5 Low back pain Office Visit 11/11/2018 11:20a [facility] Internal Tiffanie Booth MD G47.62 Sleep related Medicine - Ccmob leg cramps N18.6 End stage renal disease Assessments Date Code Description Provider 03/16/2019 R53.83 Other fatigue Tiffanie Booth MD 03/15/2019 I48.0 Paroxysmal atrial fibrillation Seymour Rivas [...] 12/30/2018 I44.0 Atrioventricular block, first degree Ngozi Bullard, N.P. 12/05/2018 I48.0 Paroxysmal atrial fibrillation Allie [...] 1:00 pm - Seymour Rivas MD at [facility] Vheldktxux87/17/2019 10:30 am - Allie Balderrama M.D. at [facility] - Tiffanie Booth, MDR53.83 Other fatigue Functional Status Description No Information Available Mental Status Description No Information Available Referrals Description No Information Available
[2019-04-22 13:34] VITALS: BP 180/106
--- NOTE | 2019-04-22 14:18 | UC ---
Shoulder Pain HPI - HPI Summary HPI Summary: CHIEF COMPLAINT and HPI: This is a 73-year-old who has a history of A. fib and is on Coumadin and had a most recent reading of 3.2, so he has not taken his Coumadin today, complaining of right shoulder pain. This morning the patient was pushing his lawnmower and he fell on asphalt. The fall was on his side and he complains primarily of bilateral shoulder pain. He denies elbow pain. He denies head injury or loss of consciousness. He denies spine injury. In the urgent care. His pain is mild, but he will not move his arm. The pain is primarily located over the humeral head. VITAL SIGNS & SaO2 REVIEWED. Within normal limits unless noted here. NURSES NOTE REVIEWED. - History of Current Complaint Chief Complaint: UCUpperExtremity Stated Complaint: RT SHOULDER PAIN Time Seen by Provider: 04/22/19 13:52 Pain Intensity: 8 - Allergies/Home Medications Allergies/Adverse Reactions: Allergies Allergy/AdvReac Type Severity Reaction Status Date / Time Iodinated Contrast Media Allergy Anaphylatic Verified 04/22/19 13:35 Shock zolpidem [From Ambien] Allergy Hallucinati Verified 04/22/19 13:35 ons Home Medications: Home Medications Amiodarone HCl [Pacerone-] 100 mg PO DAILY 04/22/19 [History Confirmed 04/22/19] Hydrocodone/Acetaminophen [Hydrocodone/Acetaminophen 5-325 mg] 1 tab PO DAILY WITH MEAL 04/22/19 [History Confirmed 04/22/19] Hyoscyamine Sulfate [Hyoscyamine Sulfate Sr] 0.375 mg PO DAILY WITH MEAL [History Confirmed 04/22/19] Levocetirizine Dihydrochloride [Xyzal Allergy 24Hr] 5 mg PO DAILY WITH MEAL 12/04 [History Confirmed 04/22/19] Ondansetron HCl [Zofran 4 MG TAB] 4 mg PO DAILY WITH MEAL 04/22/19 [History Confirmed 04/22/19] Torsemide 20 mg PO DAILY WITH MEAL 04/22/19 [History Confirmed 04/22/19] dilTIAZem HCl [Cartia Xt] 240 mg PO DAILY WITH MEAL 04/22/19 [History Confirmed 04/22/19] PMH/Surg Hx/FS Hx/Imm Hx - Additional Past Medical History Additional PMH: PAST MEDICAL HISTORY- CHRONIC and RECURRENT HEALTH PROBLEM LIST REVIEWED. Information relevant to present complaint: history of atrial fibrillation, asthma, renal failure. VISIT HISTORY REVIEWED: MEDICATIONS & ALLERGIES REVIEWED.patient is on warfarin and diltiazem. HYPERTENSION STATUS:history of hypertension and is being treated. FAMILY HISTORY: Positive for: hypertension, kidney disease. SOCIAL HISTORY: non-smoker, lives with , and , is retired. - Surgical History Surgical History: Yes Surgery Procedure, Year, and Place: L4-L5 LAMINECTOMY 1975. Cataracts out B/l - Family History Known Family History: Positive: Other - renal disease - Social History Alcohol Use: Rare Substance Use Type: None Smoking Status (MU): Never Smoked Tobacco - Immunization History Most Recent Influenza Vaccination: 2015 Most Recent Tetanus Shot: 2010 Most Recent Pneumonia Vaccination: 2012 Review of Systems All Other Systems Reviewed And Are Negative: Yes Constitutional: Positive: Negative Respiratory: Positive: Negative Cardiovascular: Positive: Negative Gastrointestinal: Positive: Negative Genitourinary: Positive: Negative Musculoskeletal: Positive: Decreased ROM - right shoulder, Myalgia - right shoulder Is Patient Immunocompromised?: No Physical Exam - Summary Physical Exam Summary: Appearance: The patient is well-appearing, is in no pain or distress, and is well-nourished. Eyes: Conjunctiva are clear. Pupils are equal and reactive to light and accommodation. Extra ocular muscle movement is intact. ENT: The hearing is grossly normal, the pharynx is normal, and the TMs are normal. There is no muffled or hoarse voice. No stridor. Neck: The neck is supple and there is no lymphadenopathy. Respiratory: The chest is non-tender to palpation and without crepitus. The lungs are clear, there are normal breath sounds, and there is no respiratory distress. No wheezes, rales or rhonchi. Cardiovascular: Heart sounds reveal a regular rate and rhythm. There are no clicks, rubs or murmurs. There are no carotid bruits or thrills. Circulation is grossly intact. Abdomen: The abdomen is soft and nontender. There is no organomegaly. Bowel sounds are present and within normal limits. No point tenderness at McBurneys point. No CVA tenderness. Musculoskeletal: Strength is intact. The patient moves all extremities. . Examination of the right shoulder: patient can move arm at shoulder in all directions but abduction is restricted to 90 degrees. No sensory deficit. Distal pulse is WNL. Pain to palpation over the right AC joint, but no step off. Neurological: The patient is alert. Motor and sensory are examination grossly intact. Speech is normal. Psychological: The patient displays age appropriate behavior, and is conversant. GCS=15. Skin: Negative for rashes. Triage Information Reviewed: Yes Vital Signs: Initial Vital Signs Temp 98.1 F 04/22/19 13:25 Pulse 66 04/22/19 13:25 Resp 20 04/22/19 13:25 BP 180/106 04/22/19 13:25 Pulse Ox 100 04/22/19 13:25 Shoulder Course/Dx - Course Course Of Treatment: This is a 73-year-old who has a history of A. fib and is on Coumadin and had a most recent reading of 3.2, so he has not taken his Coumadin today, complaining of right shoulder pain. This morning the patient was pushing his lawnmower and he fell on asphalt. The fall was on his side and he complains of pain over the right, proximal shoulder. blood pressure: 180/106. X RAY: #. Negative for fracture #. Normal acromioclavicular and glenohumeral joint alignment. #. 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 Associated capsular hypertrophy at the dorsal margin of the AC joint. Small inferior acromial bone spur. #. Sclerotic and cystic change at the greater tuberosity of the humerus noted typically seen in setting of chronic rotator cuff pathology. # . Negative for calcific tendinopathy or abnormal soft tissue contour. IMPRESSION : #. Negative for fracture or dislocation. Patient requests Vicodin and Flexeril. Reference #: [id number]. 10 vicodin given. DDX: INCLUDES CLOSED FX V. CONTUSION AND MUSCLE STRAIN. Dx is contusion of right shoulder with muscle strain in the area of the right rotator cuff. - Differential Dx/Diagnosis Differential Diagnosis/HQI/PQRI: Contusion, Fracture (Closed), Rotator Cuff Injury, Sprain, Strain Provider Diagnosis: Contusion Discharge ED - Sign-Out/Discharge Documenting (check all that apply): Patient Departure All imaging exams completed and their final reports reviewed: Yes - Discharge Plan Condition: Stable Disposition: HOME Prescriptions: Cyclobenzaprine TAB* [Flexeril TAB*] 10 mg PO BID #10 tab MDD 2 HYDROcodone/ACETAMIN 5-325 MG* [[place] 5-325 TAB*] 1 tab PO Q6H #10 tab MDD 4 Patient Education Materials: Contusion in Adults (ED), Shoulder Sprain (ED) Referrals: Tiffanie Booth MD [Primary Care Provider] - Additional Instructions: WE DISCUSSED: PLEASE SEEK CARE AT THE EMERGENCY DEPARTMENT IF SYMPTOMS WORSEN OR IF NEW SYMPTOMS DEVELOP. FOLLOW UP WITH YOUR PRIMARY CARE PHYSICIAN IF CONDITION CONTINUES BEYOND 3 DAYS WITHOUT IMPROVEMENT. YOUR DIAGNOSIS IS: right shoulder contusion and strain. NO fracture. YOUR PRESCRIPTION RECOMMENDATION IS: flexeril and vicodin. OTHER INSTRUCTIONS: Hypertension Discharge Instructions: Your blood pressure reading today was 180/106, indicating HYPERTENSION. Follow- up with your primary care provider within 4 weeks for blood pressure check and appropriate recommendations and treatment, as needed. Warm moist heat in the morning; ice after use to area; pendulum exercises as you become more comfortable. You condition should get better in the next two weeks. If not, recheck. Recheck at any time for sudden increased pain or disability. - Billing Disposition and Condition Condition: STABLE Disposition: Home
== END 2019-04-22 15:08 | disposition home or self-care (01) ==
LOC: UCEAST 13:23
DX: S40.011A Contusion of right shoulder, initial encounter (principal); M25.512 Pain in left shoulder; I48.91 Unspecified atrial fibrillation; Z91.041 Radiographic dye allergy status; Z79.01 Long term (current) use of anticoagulants; Z88.8 Allergy status to other drugs, medicaments and biological substances; W19.XXXA Unspecified fall, initial encounter; Y93.89 Activity, other specified; Y92.9 Unspecified place or not applicable
CPT/HCPCS: 99213; G0463

== ENCOUNTER 2019-05-16 16:56 | Emergency (ER) | payer MEDICARE ==
--- OUTSIDE RECORDS SUMMARY | 2019-05-16 17:10 | XMS REPORT | Continuity of Care Document ---
:1945 External Reference #:[id number] Author Name Fernanda Vasquez MD (transmitted by agent of provider Aileen Cherry) Address [address] [facility], [facility] [place] [address] Care Team Providers Name Role Phone Tonio Carrera MD - Nephrology Care Team Information Experiential Therapist Tiffanie Booth MD - Internal Medicine Care Team Information Experiential Therapist Seymour Rivas MD - Nephrology Care Team Information Experiential Therapist Problems Active Problems Provider Date Paroxysmal atrial fibrillation Allie Balderrama M.D. Onset: 05/01/2016 Disturbance in sleep behavior Viviane Christy MD Onset: 2016 Obesity Viviane Christy MD Onset: 2016 Obstructive sleep apnea syndrome Viviane Christy MD Onset: 09/01/2016 Essential hypertension Allie Balderrama M.D. Onset: 10/20/2016 Supraventricular premature beats Allie Balderrama M.D. Onset: 10/20/2016 Insomnia Stacey Barba DNP, RN, WEED SCIENCE RESEARCH TECHNICIAN-BC Onset: 04/23/2017 Hypersomnia Stacey Barba DNP, RN, WEED SCIENCE RESEARCH TECHNICIAN-BC Onset: 04/23/2017 Chronic kidney disease stage 4 Chester Penn M.D.,FACP Onset: 01/07/2018 Chronic sinusitis Chester Penn M.D.,FACP Onset: 01/07/2018 Note: and afrin dependence Hyperlipidemia Allie Balderrama M.D. Onset: 05/06/2018 First degree atrioventricular block Allie Balderrama M.D. Onset: 04/04/2019 Hypertensive heart disease Fernanda Vasquez MD Onset: 05/16/2019 Localized, secondary osteoarthritis of the Fernanda Vasquez MD Onset: 05/16/2019 shoulder region Asthma Fernanda Vasquez MD Onset: 05/16/2019 Bleeding Fernanda Vasquez MD Onset: 05/16/2019 Anxiety Fernanda Vasquez MD Onset: 05/16/2019 Social History Type Date Description Comments Sex Unknown Tobacco Use Start: Unknown Never Smoked Cigarettes ETOH Use 02/17/2018 Denies alcohol use Recreational Drug Use Denies Drug Use Tobacco Use Start: Unknown End: Patient is a former smoker Unknown Smoking Status Reviewed: 05/16/19 Patient is a former smoker Exercise Type/Frequency Exercises rarely Allergies, Adverse Reactions, Alerts Active Allergies Reaction Severity Comments Date Sulfa Antibiotics 05/01/2016 IV Contrast Dye 05/01/2016 Statins Myalgias Lipitor 05/01/2016 Dust, Mites 10/12/2016 Amlodipine swelling feet 10/14/2016 Environmental Tree leaves, cats, dogs, grasses 04/23/2017 Medications Active Medications SIG Qnty Indications Ordering Date Provider Meclizine HCL 1 tablet every 30tabs Tiffanie Booth MD 01/16/2019 25mg Tablets 8 hours as needed for vertigo Ondansetron HCL one by mouth 30tabs Tiffanie Booth MD 01/16/2019 4mg Tablets every 8 hours as needed for nausea Ropinirole HCL take one tablet 30tabs Tiffanie Booth MD 11/11/2018 0.25mg 1-3 hours Tablets before bedtime Hyoscyamine Sulfate SL 1 sl tid prn 30tabs Chester Yates 07/27/2018 aura Penn M.D.,FACP 0.125mg Tablets Sub Hydrocodone-Acetaminoph 1 by mouth 30tabs Tiffanie Booth MD 07/05/2018 en every 4 hours 5-325mg Tablets as needed for pain Medical Marijuana 1 tablets every Allie Conchis, 05/06/2018 8 hours M.D. 8.0THC/8.0 CBD Lunesta take 1 tablet 30tabs Tiffanie Booth MD 04/15/2018 3mg Tablets by mouth at bedtime for insomnia - maximum daily dose of 1 per day Morphine Sulfate 5 mg every 3 15ml Alysia Bailey, 04/12/2018 (Concentrate) hours as needed N.P. 20mg/ml for pain or sob Solution as directed by hospice nurse Amiodarone HCL 1/2 tab by 90tabs Allie Balderrama, 04/06/2018 200mg mouth every M.D. Tablets day. for afib may take extra tablets up to 800mg in one day. Torsemide 1 tab by mouth 90tabs R06.02 Tiffanie Booth MD 01/07/2018 20mg Tablets daily. may take 2 tabs daily as needed for leg swelling or sob up to 3x week. Cpap Mask And Supplies cpap supplies - 1units Tiffanie Booth MD 11/23/2017 headgear, Device cushion, tubing, filters, for sleep apnea dx 780.57 Proair HFA 2 puffs by 8.5units Deuce Núñez 05/24/2017 108(90Base) mouth twice Abram Mccall mcg/Act Aerosol daily prn Carvedilol 2 tabs by mouth 360tabs Allie Balderrama, 10/15/2016 3.125mg Tablets twice daily M.D. Warfarin Sodium 1 by mouth 120tabs Allie Balderrama, 4mg Tablets every night M.D. and as directed. Mucinex Maximum prn Unknown Strength 1200mg Tablets ER 12HR Xyzal Allergy 24HR Once daily as Unknown 5mg needed Tablets Cartia XT 1 tab by mouth 30caps Sancho D. 120mg Caps ER every daily. Abram Hargrove 24HR Leg Cramp Relief daily as needed Unknown Tablets Advair HFA 2 puffs bid Unknown 115-21mcg/Act Aerosol Cyclobenzaprine HCL take 1 tablet Unknown 10mg by mouth twice Tablets a day if needed for muscle spasm History Medications Doxycycline Hyclate 1 by mouth twice 20tabs Tiffanie Booth MD 03/17/2019 - 100mg a day 04/03/2019 Tablets Medications Administered in Office Medication SIG Qnty Indications Ordering Provider Date Technetium TC 99M Angelito Bustos DO [facility] 02/01/2018 Tetrofosmin, Per Unit Dose Up To 40 Millicuries Injection Technetium TC 99M [facility] Schedule 05/14/2016 Tetrofosmin, Per Unit Dose Up To 40 Millicuries Injection Technetium TC 99M Angelito Bustos DO [facility] 05/12/2016 Tetrofosmin, Per Unit Dose Up To 40 Millicuries Injection Immunizations CPT Code Status Date Vaccine Lot # [id number] Given 05/24/2017 Influenza Virus Vaccine, Quadrivalent, Split, [id number] Preservative Free 04952 Given 12/11/2014 Pneumococcal Conjugate Vaccine 13 Valent For Intramuscular Use 72553 Given 01/25/2012 Zoster (Zostavax) 53749 Given 01/25/2012 Tdap - Tetanus/Diptheria/Acellular Pertussis 63954 Given 05/22/2011 Pneumonia Vaccine Vital Signs Date Vital Result Comment 05/16/2019 3:22pm Height 71 inches 5'11" Weight 256.00 lb Heart Rate 63 /min BP Systolic 120 mmHg BP Diastolic 76 mmHg Respiratory Rate 16 /min Body Temperature 98.1 F Pain Level 6 O2 % BldC Oximetry 93 % BMI (Body Mass Index) 35.7 kg/m2 04/26/2019 10:53am Height 71 inches 5'11" Weight 268.00 lb Heart Rate 63 /min BP Systolic 149 mmHg BP Diastolic 88 mmHg Body Temperature 98.2 F O2 % BldC Oximetry 97 % BMI (Body Mass Index) 37.4 kg/m2 Results Test Date Facility Test Result H/L Range Note Inr/Protime 05/03/2019 [facility] Inr 1.15 High 0.82-1.09 1 [address] [place] [address] [phone] Inr/Protime 04/21/2019 [facility] Inr 3.53 High 0.82-1.09 2 [address] [place] [address] [phone] Inr/Protime 04/10/2019 [facility] Inr 3.02 High 0.82-1.09 3 [address] [place] [address] [phone] Laboratory test 04/04/2019 [facility] Magnesium 2.4 mg/dL Normal 1.9-2.7 finding [address] [place] [address] [phone] Laboratory test 03/16/2019 [facility] C Reactive 2.67 mg/L Normal <8.[address] [place] [address] [phone] Erythrocyte Sed Rate 6 mm/Hr Normal 0-19 Liver Function 03/16/2019 [facility] Total Protein 6.1 g/dL Low 6.4-8.[address] [place] [address] [phone] Albumin 4.0 g/dL Normal 3.2-5.2 Globulin 2.1 g/dL Normal 2-4 Albumin/Globulin Ratio 1.9 Normal 1-3 Total Bilirubin 0.40 mg/dL Normal 0.2-1.0 Direct Bilirubin 0.10 mg/dL Normal 0.03-0.18 Indirect Bilirubin 0.3 mg/dL Normal 0.3-1.0 Alkaline Phosphatase 79 U/L Normal 34-104 Alt 17 U/L Normal 7-52 Ast 17 U/L Normal 13-39 Urinalysis Profile 03/16/2019 [facility] Urine Color Yellow [address] [place], [place] [id number] [phone] Urine Appearance Clear Urine Specific [place] 1.014 Normal 1.010-1.030 Urine pH 5.0 Normal 5-9 Urine Urobilinogen Negative Negative Urine Ketones Negative Negative Urine Protein Negative Negative Urine Leukocytes Negative Negative Urine Blood 1+ Abnormal Negative Urine Nitrite Negative Negative Urine Bilirubin Negative Negative Urine Glucose Negative Negative Urine White Blood Cell Trace(0-5/hpf) Absent Urine Red Blood Cell Trace(0-2/hpf) Absent Urine Bacteria Absent Absent Urine Squamous Epithelial Cell Present Abnormal Absent Urine Culture And 03/16/2019 [facility] Urine SEE RESULT [address] Culture BELOW [place], [place] [address] [phone] Inr/Protime 03/13/2019 [facility] Inr 1.90 High 0.[address] [place] [address] [phone] Inr/Protime 02/21/2019 [facility] Inr 1.79 High 0.[address] [place] [address] [phone] Inr/Protime 02/08/2019 [facility] Inr 2.18 High 0.[address] [place] [address] 9 [phone] Inr/Protime 01/30/2019 [facility] Inr 1.97 High 0.[address] [place] [address] 9 [phone] Inr/Protime 01/23/2019 [facility] Inr 1.79 High 0.[address] [place] [address] 9 [phone] Inr/Protime 01/16/2019 [facility] Inr 1.39 High 0.[address] [place] [address] 9 [phone] Inr/Protime 01/05/2019 [facility] Inr 3.13 High 0.[address] [place] [address] 9 [phone] Inr/Protime 12/21/2018 [facility] Inr 2.84 High 0.[address] [place] [address] 9 [phone] Inr/Protime 12/15/2018 [facility] Inr 2.45 High 0.[address] [place] [address] 9 [phone] Urine Culture And 12/06/2018 [facility] Urine SEE RESULT [address] [place] [address] [phone] Comp Metabolic 12/06/2018 [facility] Sodium 141 mmol/L Normal 135- Panel [address] [place] [address] [phone] Potassium 4.3 mmol/L Normal 3.5-5.0 Chloride 105 [...] Egfr Non- 11.9 >60 Egfr 14.4 >60 15 Laboratory test 12/06/2018 [facility] Thyroxine 6.70 Normal 6.09-12.23 finding [address] [facility] g/[place] [address] [phone] TSH (Thyroid Stim Horm) 3.59 mcIU/mL Normal 0.34-5.60 Free T4 (Free Thyroxine) 1.06 ng/dL Normal 0.61-1.12 Urinalysis Profile 12/06/2018 [facility] Urine Color Yellow [address] [place] [address] [phone] Urine Appearance Clear Urine Specific [place] 1.017 Normal 1.010-1.030 Urine pH 5.0 Normal 5-9 Urine Urobilinogen Negative Negative Urine Ketones Negative Negative Urine Protein Negative Negative Urine Leukocytes Negative Negative Urine Blood Negative Negative Urine Nitrite Negative Negative Urine Bilirubin Negative Negative Urine Glucose Negative Negative Inr/Protime 12/01/2018 [facility] Inr 2.19 High 0.82-1.09 16 [facility] [place] [address] [phone] Inr/Protime 11/23/2018 [facility] Inr 3.04 High 0.82-1.09 [address] [place] [address] [phone] Inr/Protime 11/16/2018 [facility] Inr 3.79 High 0.82-1.09 18 [facility] [place] [address] [phone] 1 Standard intensity warfarin therapeutic range: 2.0-3.0 High intensity warfarin therapeutic range: 2.5-3.5 2 Standard intensity warfarin therapeutic range: 2.0-3.0 High intensity warfarin therapeutic range: 2.5-3.5 3 Standard intensity warfarin therapeutic range: 2.0-3.0 High intensity warfarin therapeutic range: 2.5-3.5 4 SEE RESULT BELOW Name: BLAYNE TODD : [address]: Tiffanie Booth MD Acct: [id number] Unit: [id number] AGE: 73 Location: [facility] Re03/16/19 SEX: M Status: REG REF SPEC: [id number] ROBERTO: 03/16/19-[address]: Tiffanie Booth MD REQ: [id number] RECD: 03/16/19 STATUS: COMP _ SOURCE: URINE SPDESC: ORDERED: Urine Culture Procedure Result Reported Site Urine Culture Final 03/17/19- 1612 ML No Growth (<1,000 CFU/mL) * ML - Main Lab . END OF REPORT DEPARTMENT OF PATHOLOGY, [address] [place] [address] Baldemar Rodgers M.D. Director [facility] # [id number] 5 Standard intensity warfarin therapeutic range: 2.0-3.0 [...] High intensity warfarin therapeutic range: 2.5-3.5 10 Standard intensity warfarin therapeutic range: 2.0-3.0 High intensity warfarin therapeutic range: 2.5-3.5 11 Standard intensity warfarin therapeutic range: 2.0-3.0 High intensity warfarin therapeutic range: 2.5-3.5 12 Standard intensity warfarin therapeutic range: 2.0-3.0 High intensity warfarin therapeutic range: 2.5-3.5 13 Standard intensity warfarin therapeutic range: 2.0-3.0 High intensity warfarin therapeutic range: 2.5-3.5 14 SEE RESULT BELOW Name: BLAYNE TODD: [address]: Allie Balderrama MD Acct: [id number] Unit: [id number] AGE: 73 Location: [facility] Re12/06/18 SEX: M Status: REG REF SPEC: [id number] ROBERTO: 12/06/[address]: Allie Balderrama MD REQ: [id number] RECD: 12/06/18 STATUS: COMP OTHR DR: Tiffanie Booth MD _ SOURCE: URINE SPDESC: ORDERED: Urine Culture Urine Source: Random Procedure Result Reported Site Urine Culture Final 12/07/18- 806 ML No Growth (<1,000 CFU/mL) * ML - Main Lab . END OF REPORT DEPARTMENT OF PATHOLOGY, [address] [place] [address] Baldemar Rodgers M.D. Director [facility] # [id number] 15 Because ethnic data is not always readily [...] 15-29 5 Kidney failure <15 (or dialysis) 16 Standard intensity warfarin therapeutic range: 2.0-3.0 High intensity warfarin therapeutic range: 2.5-3.5 17 Standard intensity warfarin therapeutic range: 2.0-3.0 High intensity warfarin therapeutic range: 2.5-3.5 18 Standard intensity warfarin therapeutic range: 2.0-3.0 High intensity warfarin therapeutic range: 2.5-3.5 Procedures Date Code Description Status 04/06/2019 89412 Diffusing Capacity Completed 04/06/2019 13334 Spirometry Incl Graphic Record Completed 04/04/2019 35232 EKG Tracing & Interpretation Completed 12/05/2018 29602 EKG Tracing & Interpretation Completed Medical Devices Description No Information Available Encounters Type Date Location Provider Dx Diagnosis Office Visit 04/26/2019 [facility] Tiffanie Booth MD S06.0x0D Concussion without 11:00a Medicine - Suite loss of R consciousness, subs encntr S29.8xxA Other specified injuries of thorax, initial encounter 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 fibrillation N18.4 Chronic kidney disease, stage 4 (severe) I44.0 Atrioventricular block, first degree G47.33 Obstructive sleep apnea (adult) (pediatric) G47.62 Sleep related leg cramps R29.6 Repeated falls Office Visit 03/16/2019 2:40p [facility] Internal Tiffanie Booth MD R53.83 Other fatigue Medicine - [facility] N18.9 Chronic kidney disease, unspecified Office Visit 03/15/2019 1:00p [facility] Nephrology Seymour A. I12.9 Hypertensive MD Evelyn chronic kidney disease w stg 1-4/unsp chr kdny N18.4 Chronic kidney disease, stage 4 (severe) I48.0 Paroxysmal atrial fibrillation I70.1 Atherosclerosis of renal artery G47.62 Sleep related leg cramps Office Visit 12/30/2018 9:30a [facility] Ngozi S. I48.0 Paroxysmal atrial Of [facility] Foster, N.P. fibrillation N18.4 Chronic kidney disease, stage 4 (severe) I12.9 Hypertensive chronic kidney disease w stg 1-4/unsp chr kdny I44.0 Atrioventricular block, first degree Office Visit 12/05/2018 2:40p [facility] Allie Balderrama, I48.0 Paroxysmal atrial Of [facility] M.D. fibrillation N18.4 Chronic kidney disease, stage 4 (severe) R10.84 Generalized abdominal pain M54.5 Low back pain Assessments Date Code Description Provider 05/16/2019 M25.511 Pain in right shoulder Fernanda Vasquez MD 05/16/2019 S46.011A Strain of muscle(s) and tendon(s) of the Fernanda Vasquez MD rotator cuff of right shoulder, initial encounter 05/16/2019 S50.01xA Contusion of right elbow, initial encounter Fernanda Vasquez MD 05/16/2019 M54.16 Radiculopathy, lumbar region Fernanda Vasquez MD 04/26/2019 S06.0x0D Concussion without loss of consciousness, Tiffanie Booth MD subsequent encounter 04/26/2019 S29.8xxA Other specified injuries of thorax, initial Tiffanie Booth MD encounter 04/26/2019 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 04/04/2019 N18.4 Chronic kidney disease, stage 4 (severe) Allie Balderrama M.D. 04/04/2019 I44.0 Atrioventricular block, first degree Allie Balderrama M.D. 04/04/2019 G47.33 Obstructive sleep apnea (adult) (pediatric) Allie Balderrama M.D. 04/04/2019 G47.62 Sleep related leg cramps Allie Balderrama M.D. 04/04/2019 R29.6 Repeated falls Allie Balderrama M.D. 03/16/2019 R53.83 Other fatigue Tiffanie Booth MD 03/16/2019 N18.9 Chronic kidney disease, unspecified Tiffanie Booth MD 03/15/2019 I12.9 Hypertensive chronic kidney disease with Seymour Rivas MD stage 1 through sta 03/15/2019 N18.4 Chronic kidney disease, stage 4 (severe) Seymour Rivas MD 03/15/2019 I48.0 Paroxysmal atrial fibrillation Seymour Rivas MD 03/15/2019 I70.1 Atherosclerosis of renal artery Seymour Rivas MD 03/15/2019 G47.62 Sleep related leg cramps Seymour Rivas MD 12/30/2018 I48.0 Paroxysmal atrial fibrillation Ngozi Bullard, N.P. 12/30/2018 N18.4 Chronic kidney disease, stage 4 (severe) Ngozi Bullard, N.P. 12/30/2018 I12.9 Hypertensive chronic kidney disease with Ngozi Bullard, N.P. stage 1 through sta 12/30/2018 I44.0 Atrioventricular block, first degree Ngozi Bullard, N.P. 12/05/2018 I48.0 Paroxysmal atrial fibrillation Allie Balderrama M.D. 12/05/2018 N18.4 Chronic kidney disease, stage 4 (severe) Allie Balderrama M.D. 12/05/2018 R10.84 Generalized abdominal pain Allie Balderrama M.D. 12/05/2018 M54.5 Low back pain Allie Balderrama M.D. Plan of Treatment Future Appointment(s):06/20/2019 1:15 pm - Fernanda Vasquez MD at [facility] at [place]/14/2019 1:00 pm - Seymour Rivas MD at [facility] [place]uf86/29/2019 - Fernanda Vasquez, MDM25.511 Pain in right shoulderFollow up: Follow up: 4 vgbzzE18.011A Strain of muscle(s) and tendon(s) of the rotator cuff of right shoulder, initial jtaxbmhgwV61.01xA Contusion of right elbow, initial nhoehkcpiS62.16 Radiculopathy, lumbar region Functional Status Description No Information Available Mental Status Description No Information Available Referrals Refer to Reason for Referral Status Appt Date Fernanda Vasquez MD Sent 05/16/2019 [address] [facility] [place] [address] [place] [address] [phone] Pain Clinic pt. previously on hospice and will need refill of medical Sent marijuana Not scheduled yet 05/08/19 [address] [place] [address] [phone]
--- OUTSIDE RECORDS SUMMARY | 2019-05-16 17:10 | XMS REPORT | Summary of Care ---
:1945 Author Organization [facility] Address [address] [address] Care Team Providers Name Role Phone Bhavna Elaine Primary Care Provider Reason for Visit Reason Comments Fall Encounter Details Date Type Department Care Team Description 05/01/2019 Office Visit [facility] - Miriam Hardin, PT Falls frequently [place] [facility] [address] [place] [address] (Primary Dx) Therapy [place], [place] [id number] [place] [address] [address] [place] [address] Allergies Active Allergy Reactions Severity Noted Date Comments Dye Intravenous Radiographic Cardiac Reaction, 03/02/2011 Imaging Contrast Respiratory Reaction Statins GI Reaction 07/17/2015 documented as of this encounter (statuses as of 05/01/2019) Medications Medication Sig Dispensed Refills Start Date End Date Status cetirizine (ZYRTEC) Take 1 Tab by mouth 30 Tab 0 12/04/2014 Active 10 MG Oral Tab DAILY. meclizine (ANTIVERT) Take 1 Tab by mouth 60 Tab 1 03/20/2015 Active 25 MG Oral Tab THREE TIMES DAILY NEEDED for dizziness/vertigo. fluticasone (FLONASE) [place] 2 Sprays in 1 Bottle 0 07/09/2015 [...] as of this encounter (statuses as of 05/01/2019) Active Problems Problem Noted Date BPH (benign [...] as of this encounter (statuses as of 05/01/2019) Resolved Problems Problem Noted Date Resolved Date Sprain of lumbar region 09/30/2011 11/19/2011 Sprain of lumbar region 08/21/2011 09/30/2011 Diabetes mellitus 04/22/2011 06/01/2011 documented as of this encounter (statuses as of 05/01/2019) Immunizations Name Administration Dates Next Due Influenza [...] encounter Progress Notes Miriam Hardin, PT - 05/01/2019 1:30 PM EDT [facility] Treatment Note Outpatient Physical Therapy [facility] PHYSICAL THERAPY [address] [place] [phone] Treatment Number: 2 Referring Physician: Allie Balderrama Primary Diagnosis: ICD-9-CM ICD-10-CM 1. Falls frequently V15.88 R29.6 Time In: 1330 Time Out: 1400 Pain at Start of Care: 8/10 Pain at End of Care: 8/10 Subjective Comments: He had a fall in his driveway and is bruised and sore up his entire right trunk. He was seen at [facility]. He is also supposed to have an MRI of the brain. He did not hit his head. Interventions: Therapeutic Exercises (55890) Number of Exercises?: 5 Total Minutes (all Therapeutic Exercise): 15 Exercise #1 Exercise Name: ankle pumps Reason for Exercise: Functional Mobility;Pain Control Location/Body Area: LE;Trunk Exercise #2 Exercise Name: chair squat using legs more than arms Reason for Exercise: Strengthening Location/Body Area: LE Exercise #3 Exercise Name: walking with spc 1 full lap inside Reason for Exercise: Strengthening;Functional Mobility Location/Body Area: LE Exercise #4 Exercise Name: transfer to the car Reason for Exercise: Strengthening;Functional Mobility Location/Body Area: LE;Trunk Manual Therapy (34460) Soft Tissue Mobilization: Manual Tissue Mobilization Soft Tissue Mobilization Details: bilateral lower legs. Total Minutes (All Manual Therapy): 15 Assessment: He did not hit his head or have LOC but he has ecchymosis up his right trunk and arm. With his renaldisease this is a lot of absorb. He is recommended to consult with his PCP and renal doctor. He was able to do a full lap in the office HR went from 71 to 91 but returned to 79 within 30 seconds. He isshaky and Still a high risk for falls. He tolerated DTM to the lower legs, minimal bruising here. Plan for Next Visit: Assess and treat Total UNTIMED Code Treatment Minutes: Total TIMED Code Treatment Minutes: 30 Total Treatment Minutes: 30 Author: Miriam Hardin, PT 05/01/2019 14:46 documented in this encounter Plan of Treatment Date Type Specialty Care Team Description 05/08/2019 Office Visit Physical Therapy Miriam Hardin, PT [address] [place] [address] [phone] 05/15/2019 Office Visit Physical Therapy Miriam Hardin, PT [address] [place] [address] [phone] Health Maintenance Due Date Last Done Comments DEPRESSION SCREENING 1957 HIV SCREENING 1960 AAA SCREENING/SURVEILLANCE 2010 FALL RISK ASSESSMENT 2010 ZOSTER IMMUNIZATION SERIES 03/21/2012 01/25/2012 (2 of 3) COLONOSCOPY SCREENING 05/09/2016 05/09/2013 LIPID DISORDER SCREENING 07/10/2016 07/10/2015, 03/02/2011 MEDICARE ANNUAL WELLNESS 07/17/2016 07/17/2015, 07/17/2015, VISIT 04/20/2013 INFLUENZA VACCINE (#1) 2019 04/10/2015, 07/23/2014, 03/15/2013, [...] Blood Pressure Blood Pressure Renovascular 112/80 No [place], < 140/90 hypertension (04/08/2016 Bhavna, 10:54 AM [...] Educational Resources. record my blood pressure results. [employer] is safe and secure way for you [...] Educational Resources: National Heart, Lung, & Blood [place] http://nhlbi.nih.gov/hbp/index.html The DASH Diet Eating Plan http://www.nhlbi.nih.gov/health/health-topics/ topics/dash/ Academy of Nutrition & DIetetics http://eatright.org National Smoking Cessation Site http://smokefree.gov documented as of this encounter Results Not on filedocumented in this encounter Visit Diagnoses Diagnosis Falls frequently - Primary Personal history of fall documented in this encounter Insurance Payer Benefit Plan / Subscriber ID Effective Dates Phone Address Type Group MEDICARE MEDICARE PART A xxxxxxxxxxx 2010-Present Medicare & B [facility] COMMERCIAL [facility] xxxxxxxxxxx 2018-Present [facility] OPTIONS Guarantor Name Account Type Relation to Date of Phone Billing Patient Address Elder Moore Personal/Family 1945 [address] ([address]) [address] [phone] [place], [place] (Work) [address] documented as of this encounter
--- OUTSIDE RECORDS SUMMARY | 2019-05-16 17:10 | XMS REPORT | Continuity of Care Document ---
:1945 External Reference #:[id number] Author Name Tiffanie Booth MD (transmitted by agent of provider Amy Ruiz) Address [address], [address] [place] [id number] Care Team Providers Name Role Phone Tonio Carrera MD - Nephrology Care Team Information Shipping Specialist Tiffanie Booth MD - Internal Medicine Care Team Information Shipping Specialist Seymour Rivas MD - Nephrology Care Team Information Shipping Specialist Problems Active Problems Provider Date Paroxysmal atrial fibrillation Allie Balderrama M.D. Onset: 05/01/2016 Disturbance in sleep behavior Viviane Christy MD Onset: 2016 Obesity Viviane Christy MD Onset: 2016 Obstructive sleep apnea syndrome Viviane Christy MD Onset: 09/01/2016 Essential hypertension Allie Balderrama M.D. Onset: 10/20/2016 Supraventricular premature beats Allie Balderrama M.D. Onset: 10/20/2016 Insomnia Stacey Barba DNP, RN, PARLIAMENTARY COUNSEL- Onset: 04/23/2017 Hypersomnia Stacey Barba DNP RN, PARLIAMENTARY COUNSEL-BC Onset: 04/23/2017 Chronic kidney disease stage 4 Chester Penn M.D.,FACP Onset: 01/07/2018 Chronic sinusitis Chester Penn M.D.,FACP Onset: 01/07/2018 Note: and afrin dependence Hyperlipidemia Allie Balderrama M.D. Onset: 05/06/2018 First degree atrioventricular block Allie Balderrama M.D. Onset: 04/04/2019 Social History Type Date Description Comments Sex Unknown Tobacco Use Start: Unknown Never Smoked Cigarettes ETOH Use 02/17/2018 Denies alcohol use Recreational Drug Use Denies Drug Use Tobacco Use Start: Unknown End: Patient is a former smoker Unknown Smoking Status Reviewed: 04/26/19 Patient is a former smoker Exercise Type/Frequency [...] Cpap Mask And Supplies cpap supplies - 1unmiranda Booth MD 11/23/2017 headgear, Device cushion, tubing, filters, for sleep apnea dx 780.57 Proair HFA 2 puffs by 8.5units Deuce Núñez 05/24/2017 108(90Base) mouth twice Abram Mccall mcg/Act Aerosol daily prn Carvedilol 2 tabs by mouth 180tabs Allie Balderrama, 10/15/2016 3.125mg Tablets twice daily [...] Ordering Provider Date Technetium TC 99M Angelito Bustos, DO FAC 02/01/2018 Tetrofosmin, Per Unit Dose Up To 40 Millicuries Injection Technetium TC 99M Ica Nuclear Schedule 05/14/2016 Tetrofosmin, Per Unit Dose Up To 40 Millicuries Injection Technetium TC 99M Angelito Bustos DO FAC 05/12/2016 Tetrofosmin, Per Unit Dose Up To 40 Millicuries Injection Immunizations CPT Code Status Date Vaccine Lot # 38534 Given 05/24/2017 Influenza Virus Vaccine, Quadrivalent, Split, [id number] Preservative Free 74350 Given 12/11/2014 Pneumococcal Conjugate Vaccine 13 Valent For Intramuscular Use 23051 Given 01/25/2012 Zoster (Zostavax) 38827 Given 01/25/2012 Tdap - Tetanus/Diptheria/Acellular Pertussis 14159 Given 05/22/2011 Pneumonia Vaccine Vital Signs Date Vital Result Comment 04/26/2019 10:53am Height 71 inches 5'11" Weight 268.00 lb Heart Rate 63 /min BP Systolic 149 mmHg BP Diastolic 88 mmHg Body Temperature 98.2 F O2 % BldC Oximetry 97 % BMI (Body Mass Index) 37.4 kg/m2 04/04/2019 10:42am Height 71 inches 5'11" Weight 258.00 lb with shoes Heart Rate 62 /min BP Systolic Sitting 140 mmHg Rue BP Diastolic Sitting 80 mmHg Rue BP Systolic Standing 142 mmHg Rue BP Diastolic Standing 84 mmHg Rue BMI (Body Mass Index) 36.0 kg/m2 Ejection Fraction 60-65% Echo 01/27/18 Results Test Date Facility Test Result H/L Range Note Inr/Protime 04/21/2019 [facility] Inr 3.53 High 0.82-1.09 1 [address] [place] [address] [phone] Inr/Protime 04/10/2019 [facility] Inr 3.02 High 0.82-1.09 2 [address] [place], [place] [address] [phone] Laboratory test 04/04/2019 [facility] Magnesium 2.4 mg/dL Normal 1.9-2.7 finding [address] [place] [address] [phone] Laboratory test 03/16/2019 [facility] C Reactive 2.67 mg/L Normal <8.01 finding [address] [facility] [place] [address] [phone] Erythrocyte Sed Rate 6 mm/Hr Normal 0-19 Liver Function 03/16/2019 [facility] Total Protein 6.1 g/dL Low 6.4-8.9 Panel [address] [place] [address] [phone] Albumin 4.0 g/dL Normal 3.2-5.2 Globulin 2.1 g/dL Normal 2-4 Albumin/Globulin Ratio 1.9 Normal 1-3 Total Bilirubin 0.40 mg/dL Normal 0.2-1.0 Direct Bilirubin 0.10 mg/dL Normal 0.03-0.18 Indirect Bilirubin 0.3 mg/dL Normal 0.3-1.0 Alkaline Phosphatase 79 U/L Normal 34-104 Alt 17 U/L Normal 7-52 Ast 17 U/L Normal 13-39 Urinalysis Profile 03/16/2019 [facility] Urine Color Yellow [address] [place] [address] [phone] Urine Appearance Clear Urine Specific [place] 1.014 Normal 1.010-1.030 Urine pH 5.0 Normal [...] Present Abnormal Absent Urine Culture And 03/16/2019 [facility] Urine SEE RESULT [address] [place] [place] [address] [phone] Inr/Protime 03/13/2019 [facility] Inr 1.90 High 0.82- [address] 1[address] [place] [address] [phone] Inr/Protime 02/21/2019 [facility] Inr 1.79 High 0.82- [address] [place], [place] [address] [phone] Inr/Protime 02/08/2019 [facility] Inr 2.18 High 0.82- [address] [place], [place] [address] [phone] Inr/Protime 01/30/2019 [facility] Inr 1.97 High 0.82- [address] [place] [address] [phone] Inr/Protime 01/23/2019 [facility] Inr 1.79 High 0.82- [address] [place], [place] [address] [phone] Inr/Protime 01/16/2019 [facility] Inr 1.39 High 0.82- [address] [place] [address] [phone] Inr/Protime 01/05/2019 [facility] Inr 3.13 High 0.82- [address] [place] [address] [phone] Inr/Protime 12/21/2018 [facility] Inr 2.84 High 0.82- [address] [place] [address] [phone] Inr/Protime 12/15/2018 [facility] Inr 2.45 High 0.82- [address] [place] [address] [phone] Urinalysis Profile 12/06/2018 [facility] Urine Color Yellow [address] [place] [address] [phone] Urine Appearance Clear Urine Specific [place] 1.017 Normal 1.010-1.030 Urine pH 5.0 Normal 5-9 Urine Urobilinogen Negative Negative Urine Ketones Negative Negative Urine Protein Negative Negative Urine Leukocytes Negative Negative Urine Blood Negative Negative Urine Nitrite Negative Negative Urine Bilirubin Negative Negative Urine Glucose Negative Negative Urine Culture And 12/06/2018 [facility] Urine SEE RESULT [address] [place] [address] [phone] Comp Metabolic 12/06/2018 [facility] Sodium 141 mmol/L Normal 135- Panel [address] [place] [address] [phone] Potassium 4.3 mmol/L Normal 3.5-5.0 Chloride 105 [...] Egfr Non- 11.9 >60 Egfr 14.4 >60 14 Laboratory test 12/06/2018 [facility] Thyroxine 6.70 Normal 6.09-12.[address] g/[place] [address] [phone] TSH (Thyroid Stim Horm) 3.59 mcIU/mL Normal 0.34-5.60 Free T4 (Free Thyroxine) 1.06 ng/dL Normal 0.61-1.12 Inr/Protime 12/01/2018 [facility] Inr 2.19 High 0.82-1.[address] [place] [address] [phone] Inr/Protime 11/23/2018 [facility] Inr 3.04 High 0.82-1.09 [address] [place] [address] [phone] Inr/Protime 11/16/2018 [facility] Inr 3.79 High 0.82-1.09 17 [address] [place] [address] [phone] Inr/Protime 11/11/2018 [facility] Inr 2.62 High 0.82-1.09 [address] [place] [address] [phone] CBC Auto Diff 11/11/2018 [facility] White Blood 7.0 Normal 3.5 -10.8 [address] [facility] Count 10^3/[place] [address] [phone] Red Blood Count 4.81 10^6/uL Normal 4.18-5.48 [...] Blood Cells % 0.1 Comp Metabolic 11/11/2018 [facility] Sodium 142 mmol/L Normal 135-145 Panel [address] [place] [address] [phone] Potassium 4.4 mmol/L Normal 3.5-5.0 Chloride 106 [...] Egfr Non- 12.2 >60 Egfr 14.8 >60 19 Iron & Iron Binding 11/11/2018 [facility] Iron 86 g/dL Normal 50-212 Capacity [address] [place] [address] [phone] Unsaturated Iron Binding < 292 g/dL Total Iron Binding Capacity 307 g/dL Normal 250-450 Transferrin 219 mg/dL Normal 203-362 % Iron Saturation 28 % Normal 15-55 Laboratory test 11/11/2018 [facility] Magnesium 2.3 mg/dL Normal 1.9-2.7 finding [address] [place] [address] [phone] Inr/Protime 11/01/2018 [facility] Inr 2.54 High 0.77-1.[address] [place] [address] [phone] 1 Standard intensity warfarin therapeutic range: 2.0-3.0 High intensity warfarin therapeutic range: 2.5-3.5 2 Standard intensity warfarin therapeutic range: 2.0-3.0 High intensity warfarin therapeutic range: 2.5-3.5 3 SEE RESULT BELOW Name: PEYTONBLAYNE : [address]: Tiffanie Booth MD Acct: [id number] Unit: [id number] AGE: 73 Location: [facility] Re03/16/19 SEX: M Status: REG REF SPEC: [id number] ROBERTO: 03/16/19 [facility] DR: Tiffanie Booth MD REQ: [id number] RECD: 03/16/19 STATUS: COMP _ SOURCE: URINE SPDESC: ORDERED: Urine Culture Procedure Result Reported Site Urine Culture Final 03/17/19- 1612 ML No Growth (<1,000 CFU/mL) * ML - Main Lab . END OF REPORT DEPARTMENT OF PATHOLOGY, [address] [place] [address] Baldemar Rodgers M.D. Director [facility] # [id number] 4 Standard intensity warfarin therapeutic range: 2.0-3.0 [...] High intensity warfarin therapeutic range: 2.5-3.5 13 SEE RESULT BELOW Name: BLAYNE TODD : [address]: Allie Balderrama MD Acct: [id number] Unit: [id number] AGE: 73 [facility]12[facility] SEX: M Status: REG REF SPEC: [id number] ROBERTO: 12/06/[address]: Allie Balderrama MD REQ: [id number] RECD: 12/06/18 STATUS: JOYCE MAYO DR: Tiffanie Booth MD _ SOURCE: URINE SPDESC: ORDERED: Urine Culture Urine Source: Random Procedure Result Reported Site Urine Culture Final 12/07/18- 0807 ML No Growth (<1,000 CFU/mL) * ML - Main Lab . END OF REPORT DEPARTMENT OF PATHOLOGY, [address] [place] [address] Baldemar Rodgers M.D. Director [facility] # [id number] 14 Because ethnic data is not always readily [...] 15-29 5 Kidney failure <15 (or dialysis) 15 Standard intensity warfarin therapeutic range: 2.0-3.0 High intensity warfarin therapeutic range: 2.5-3.5 16 Standard intensity warfarin therapeutic range: 2.0-3.0 High intensity warfarin therapeutic range: 2.5-3.5 17 Standard intensity warfarin therapeutic range: 2.0-3.0 High intensity warfarin therapeutic range: 2.5-3.5 18 Standard intensity warfarin therapeutic range: 2.0-3.0 High intensity warfarin therapeutic range: 2.5-3.5 19 Because ethnic data is not always readily [...] (or dialysis) Procedures Date Code Description Status 04/06/2019 41454 Diffusing Capacity Completed 04/06/2019 02403 Spirometry Incl Graphic Record Completed 04/04/2019 69893 EKG Tracing & Interpretation Completed 12/05/2018 39722 EKG Tracing & Interpretation Completed Medical Devices Description No Information Available Encounters Type Date Location Provider Dx Diagnosis Office Visit 04/04/2019 [facility] Allie Samer, I48.0 Paroxysmal atrial 10:30a Of [facility] M.DRupa fibrillation N18.4 Chronic kidney disease, stage 4 (severe) I44.0 Atrioventricular block, first degree G47.33 Obstructive sleep apnea (adult) (pediatric) G47.62 Sleep related leg cramps R29.6 Repeated falls Office Visit 03/16/2019 2:40p [facility] Internal Tiffanie Booth MD R53.83 Other fatigue Medicine - [facility] N18.9 Chronic kidney disease, unspecified Office Visit 03/15/2019 1:00p [facility] Nephrology Seymour A. I12.9 Hypertensive MD Evelyn chronic kidney disease w stg 1-4/unsp [facility] kdny N18.4 Chronic kidney disease, stage 4 (severe) I48.0 Paroxysmal atrial fibrillation I70.1 Atherosclerosis of renal artery G47.62 Sleep related leg cramps Office Visit 12/30/2018 9:30a [facility] Ngozi Franco I48.0 Paroxysmal atrial [facility] Juan Miguel N.PRupa fibrillation N18.4 Chronic kidney disease, stage 4 (severe) I12.9 Hypertensive chronic kidney disease w stg 1-4/unsp chr kdny I44.0 Atrioventricular block, first degree Office Visit 12/05/2018 2:40p [facility] Allie Balderrama I48.0 Paroxysmal atrial Of [place] M.DRupa fibrillation N18.4 Chronic kidney disease, stage 4 (severe) R10.84 Generalized abdominal pain M54.5 Low back pain Office Visit 11/11/2018 11:20a [facility] Internal Tiffanie Booth MD G47.62 Sleep related Medicine - [facility] leg cramps N18.6 End stage renal disease Assessments Date Code Description Provider 04/26/2019 R07.89 Other chest pain Tiffanie Booth MD 04/26/2019 S06.0x0D Concussion without loss of consciousness, Tiffanie Booth MD subsequent encounter 04/06/2019 I48.91 Unspecified atrial fibrillation Viviane Christy [...] 1:00 pm - Seymour Rivas MD at [facility] Xmzvwpjlkp74/09/2019 - Tiffanie Booth, MDR07.89 Other chest painNew Xrays:Chest PA & Lat 2 VWS, Ordered: 04/26/19Ribs Right Unilateral 2 VWS, Ordered: Comments:I have increased the frequency of your medication to one tablet every 4 hours as [id number] Concussion without loss of consciousness, subsequent encounterNew Xrays:CT Brain Wo, Ordered: 04/26/19 Functional Status Description No Information Available Mental Status Description No Information Available Referrals Description No Information Available
--- OUTSIDE RECORDS SUMMARY | 2019-05-16 17:10 | XMS REPORT | Summary of Care ---
:1945 Author Organization [facility] Address [address] [address] Care Team Providers Name Role Phone Bhavna Elaine Primary Care Provider Reason for Visit Reason Comments Fall Encounter Details Date Type Department Care Team Description 05/15/2019 Office Visit [facility] - Miriam Hardin, PT Falls frequently [place] [facility] [address] [place] [address] (Primary Dx) Therapy [place], [place] [id number] [place] [address] [place] [address] Allergies Active Allergy Reactions Severity Noted Date Comments Dye Intravenous Radiographic Cardiac Reaction, 03/02/2011 Imaging Contrast Respiratory Reaction Statins GI Reaction 07/17/2015 documented as of this encounter (statuses as of 05/15/2019) Medications Medication Sig Dispensed Refills Start Date End Date Status cetirizine (ZYRTEC) Take 1 Tab by mouth 30 Tab 0 12/04/2014 Active 10 MG Oral Tab DAILY. meclizine (ANTIVERT) Take 1 Tab by mouth 60 Tab 1 03/20/2015 Active 25 MG Oral Tab THREE TIMES DAILY NEEDED for dizziness/vertigo. fluticasone (FLONASE) [place] 2 Sprays in 1 Bottle 0 07/09/2015 [...] as of this encounter (statuses as of 05/15/2019) Active Problems Problem Noted Date BPH (benign [...] as of this encounter (statuses as of 05/15/2019) Resolved Problems Problem Noted Date Resolved Date Sprain of lumbar region 09/30/2011 11/19/2011 Sprain of lumbar region 08/21/2011 09/30/2011 Diabetes mellitus 04/22/2011 06/01/2011 documented as of this encounter (statuses as of 05/15/2019) Immunizations Name Administration Dates Next Due Influenza [...] encounter Progress Notes Miriam Hardin, PT - 05/15/2019 1:30 PM EDT [facility] Treatment Note Outpatient Physical Therapy Services [facility] PH[facility]ICAL THER[facility]Y [address] [place] [phone] Treatment Number: 4 Referring Physician: Allie Balderrama Primary Diagnosis: ICD-9-CM ICD-10-CM 1. Falls frequently V15.88 R29.6 Time In: 1330 Time Out: 1400 Pain at Start of Care: 10/26 Pain at End of Care: 09/25 Subjective Comments: He is scheduled to see an orthopedic doctor and he is feeling a little better, less elbow pain but the shoulder blade is sore. Interventions: Therapeutic Exercises (69564) Total Minutes (all Therapeutic Exercise): 30 Exercise #1 Exercise Name: ankle pumps Reason for Exercise: Functional Mobility;Pain Control Location/Body Area: LE;Trunk Exercise #2 Exercise Name: chair squat using legs more than arms Reason for Exercise: Strengthening Location/Body Area: LE Exercise #3 Exercise Name: walking without spc 4 full lap inside Reason for Exercise: Strengthening;Functional Mobility Location/Body Area: LE Details: 6 min Exercise #4 Exercise Name: corner balance exercises Reason for Exercise: Balance;Strengthening Location/Body Area: LE;Trunk Assessment: He had much better balance with gait today and was able to start corner exercises. He did chair squats without issue. Will continue to work the quads and balance. Plan for Next Visit: Assess and treat Total UNTIMED Code Treatment Minutes: Total TIMED Code Treatment Minutes: 30 Total Treatment Minutes: 30 Author: Miriam Hardin, PT 05/15/2019 14:39 documented in this encounter Plan of Treatment Health Maintenance Due Date Last Done Comments [...] Educational Resources. record my blood pressure results. [employer] is safe and secure way for you [...] Educational Resources: National Heart, Lung, & Blood [place] http://nhlbi.nih.gov/hbp/index.html The DASH Diet Eating Plan http://www.nhlbi.nih.gov/health/health-topics/ [...] PART A xxxxxxxxxxx 2010-Present Medicare & B [facility] COMMERCIAL [facility] xxxxxxxxxxx 2018-Present [facility] OPTIONS Guarantor Name Account Type Relation to Date of Phone Billing Patient Address Elder Moore Personal/Family 1945 [address] ([address] [phone] [place], [place] (Work) [id number] documented as of this encounter
--- OUTSIDE RECORDS SUMMARY | 2019-05-16 17:10 | XMS REPORT | Summary of Care ---
:1945 Author Organization [facility] Address [address] [address] Care Team Providers Name Role Phone Bhavna Elaine Primary Care Provider Reason for Visit Reason Comments Fall Encounter Details Date Type Department Care Team Description 05/08/2019 Office Visit [facility] - Miriam Hardin, PT Falls frequently [place] [facility] [address] [place] [address] (Primary Dx) Therapy [place], [place] [id number] [place] [address] [place] [address] Allergies Active Allergy Reactions Severity Noted Date Comments Dye Intravenous Radiographic Cardiac Reaction, 03/02/2011 Imaging Contrast Respiratory Reaction Statins GI Reaction 07/17/2015 documented as of this encounter (statuses as of 05/08/2019) Medications Medication Sig Dispensed Refills Start Date End Date Status cetirizine (ZYRTEC) Take 1 Tab by mouth 30 Tab 0 12/04/2014 Active 10 MG Oral Tab DAILY. meclizine (ANTIVERT) Take 1 Tab by mouth 60 Tab 1 03/20/2015 Active 25 MG Oral Tab THREE TIMES DAILY NEEDED for dizziness/vertigo. fluticasone (FLONASE) [place] 2 Sprays in 1 Bottle 0 07/09/2015 [...] as of this encounter (statuses as of 05/08/2019) Active Problems Problem Noted Date BPH (benign [...] as of this encounter (statuses as of 05/08/2019) Resolved Problems Problem Noted Date Resolved Date Sprain of lumbar region 09/30/2011 11/19/2011 Sprain of lumbar region 08/21/2011 09/30/2011 Diabetes mellitus 04/22/2011 06/01/2011 documented as of this encounter (statuses as of 05/08/2019) Immunizations Name Administration Dates Next Due Influenza [...] encounter Progress Notes Miriam Hardin, PT - 05/08/2019 2:00 PM EDT [facility] Treatment Note Outpatient Physical Therapy Services [facility] PHYSICAL THERAPY [address] [place] [id number] Treatment Number: 3 Referring Physician: Allie Balderrama Primary Diagnosis: ICD-9-CM ICD-10-CM 1. Falls frequently V15.88 R29.6 Time In: 1400 Time Out: 1430 Pain at Start of Care: 01/25 Pain at End of Care: 12/26 Subjective Comments: He is still having a lot of right arm pain and he did not call his doctor yet. Interventions: Therapeutic Exercises (55198) Total Minutes (all Therapeutic Exercise): 15 Exercise #1 Exercise Name: ankle pumps Reason for Exercise: Functional Mobility;Pain Control Location/Body Area: LE;Trunk Exercise #3 Exercise Name: walking with spc 2 full lap inside Reason for Exercise: Strengthening;Functional Mobility Location/Body Area: LE Details: arm against his body for support Manual Therapy (10626) Soft Tissue Mobilization: Manual Tissue Mobilization Soft Tissue Mobilization Details: bilateral lower legs. Total Minutes (All Manual Therapy): 15 Assessment: Highly recommended he contact his pcp and his renal doctor about his fall. He was able to walk better and 2 full laps today and as long as the right arm was against his body no arm pain. Plan for Next Visit: If he hasn't contacted his PCP will not see him. Total UNTIMED Code Treatment Minutes: Total TIMED Code Treatment Minutes: 30 Total Treatment Minutes: 30 Author: Miriam Hardin, PT 05/08/2019 14:27 documented in this encounter Plan of Treatment Date Type Specialty Care Team Description 05/15/2019 Office Visit Physical Therapy Miriam Hardin, PT [address] [place] [address] [phone] Health Maintenance Due Date Last Done Comments [...] Blood Pressure Blood Pressure Renovascular 112/80 No Galkofi, < 140/90 hypertension (04/08/2016 Bhavna, 10:54 AM [...] Educational Resources. record my blood pressure results. Lucae is safe and secure way for you [...] Educational Resources: National Heart, Lung, & Blood Foster http://nhlbi.nih.gov/hbp/index.html The DASH Diet Eating Plan http://www.nhlbi.nih.gov/health/health-topics/ [...] PART A xxxxxxxxxxx 2010-Present Medicare & B [facility] COMMERCIAL [facility] xxxxxxxxxxx 2018-Present [facility] OPTIONS Guarantor Name Account Type Relation to Date of Phone Billing Patient Address Elder Moore Personal/Family 1945 [address] [phone] [place], [place] (Work) [id number] documented as of this encounter
--- NOTE | 2019-05-16 17:53 | ED ---
Back Pain - HPI Summary HPI Summary: 73 year old male presents to [facility] with a chief complaint of back pain secondary to a fall 3 weeks ago. Patient reports falling on his right side, which broke ribs and bruised his scapula and ulna. Over the last few weeks the bruising subsided but the back pain severely worsened. Patient describes the back pain as stiff and sore with a pain intensity of 8/10. He also reports numbness in his legs bilaterally, shoulder pain, and instability while ambulating. He reports that he has fallen at a much higher frequency in the last year. Patient reports difficulty urinating in the morning starting a week ago. He has no recent surgery on his back, but in 1975 he had an unsuccessful laminectomy on his V4 and V5. PMHx of ankle surgery secondary to a torn Achilles on his right side. - History of Current Complaint Chief Complaint: EDBackInjuryPain Stated Complaint: WEAKNESS PER PT Time Seen by Provider: 05/16/19 17:32 Hx Obtained From: Patient Onset/Duration: Sudden Onset, Lasting Weeks, Still Present Onset/Duration: Started Weeks Ago, Traumatic - fall Timing: Constant Back Pain Location: Is Diffuse - back Severity Initially: Moderate Severity Currently: Severe Pain Intensity: 8 Pain Scale Used: 0-10 Numeric Character: Stiffness Aggravating Symptom(s): Movement Alleviating Symptom(s): Nothing Associated Signs And Symptoms: Positive: Numbness - in legs - Allergies/Home Medications Allergies/Adverse Reactions: Allergies Allergy/AdvReac Type Severity Reaction Status Date / Time Iodinated Contrast Media Allergy Anaphylatic Verified 04/22/19 13:35 Shock zolpidem [From Ambien] Allergy Hallucinati Verified 04/22/19 13:35 ons Home Medications: Home Medications Diltiazem CD CAP* [Cardizem CD CAP*] 240 mg PO DAILY WITH MEAL 05/16/19 [ History Confirmed 05/16/19] HYDROcodone/ACETAMIN 5-325 MG* [[place] 5-325 TAB*] 1 tab PO Q4HR MDD 6 05/16/19 [ History Confirmed 05/16/19] LevoCETirizine TAB (NF) [Xyzal TAB (NF)] 5 mg PO DAILY WITH MEAL 05/16/19 [ History Confirmed 05/16/19] Ondansetron TAB* [Zofran 4 MG Tab*] 4 mg PO DAILY WITH MEAL 05/16/19 [History Confirmed 05/16/19] Torsemide TAB* [Demadex*] 20 mg PO DAILY 05/16/19 [History Confirmed 05/16/19] PMH/Surg Hx/FS Hx/Imm Hx Endocrine/Hematology History: Denies: Hx Diabetes, Hx Thyroid Disease Cardiovascular History: Reports: Hx Hypercholesterolemia, Hx Hypertension, Other Cardiovascular Problems/Disorders - HIGH CHOLESTEROL Respiratory History: Reports: Hx Asthma, Hx Sleep Apnea Denies: Hx Chronic Obstructive Pulmonary Disease (COPD) GI History: Reports: Hx Gastroesophageal Reflux Disease Denies: Hx Ulcer History: Reports: Hx Benign Prostatic Hyperplasia, Hx Chronic Renal Failure, Other Problems/Disorders - renal artery stenosis (stents) Denies: Hx Dialysis, Hx Kidney Infection, Hx Kidney Stones Musculoskeletal History: Reports: Hx Back Problems, Hx Orthopedic Injury - right foot ligament revision Sensory History: Reports: Hx Cataracts - surgery to both eyes, Hx Contacts or Glasses Denies: Hx Eye Injury, Hx Deafness Opthamlomology History: Reports: Hx Cataracts - surgery to both eyes, Hx Contacts or Glasses Denies: Hx Eye Injury Neurological History: Reports: Other Neuro Impairments/Disorders - L4-L5 laminectomy Psychiatric History: Reports: Hx Anxiety - Surgical History Surgery Procedure, Year, and Place: L4-L5 LAMINECTOMY 1975. Cataracts out B/l, renal stents,tonsillectomy - Immunization History Date of Tetanus Vaccine: Remote Date of Influenza Vaccine: 2014 Infectious Disease History: No Infectious Disease History: Reports: Hx Shingles Denies: Hx Hepatitis, Hx Human Immunodeficiency Virus (HIV), Traveled Outside the [place] in Last 30 Days - Family History Known Family History: Positive: Other - renal disease - Social History Alcohol Use: Rare Hx Substance Use: No Substance Use Type: Reports: None Hx Tobacco Use: No Smoking Status (MU): Never Smoked Tobacco Review of Systems Negative: Fever Positive: other - difficulty urinating Positive: Arthralgia - shoulder, Myalgia - back Positive: Numbness - legs All Other Systems Reviewed And Are Negative: Yes Physical Exam - Summary Physical Exam Summary: Appearance: Well-appearing, Well-nourished, elderly male lying in bed comfortably Skin: Warm, dry, no obvious rash Eyes: sclera anicteric, no conjunctival pallor ENT: mucous membranes moist, pharynx appears normal Neck: Supple, nontender Respiratory: Clear to auscultation, no signs of respiratory distress Cardiovascular: Normal S1, S2. No murmurs. Normal distal pulses in tibial and radial bilaterally. Abdomen: Soft, nontender, normal active bowel sounds present Musculoskeletal: Normal, Strength/ROM Intact, There is no rigidity or tremor noted. Symmetrical proximal weakness in lower extremities. Patient has trouble going from a seated to standing position. Neurological: A&Ox3, awake and alert, mentation is normal, speech is fluent and appropriate, Level of consciousness nml. The patient is alert and oriented. Cranial nerves are grossly intact. Gaze is conjugate and without nystagmus. Peripheral vision is intact to confrontation. There are no gross sensory abnormalities to light touch. There is no truncal or fine motor ataxia. Gait is normal. No deep tendon reflex absent bilaterally in knees and ankles. His toes are not upgoing. No clonus on ankle jerk. Psychiatric: affect is normal, does not appear anxious or depressed Triage Information Reviewed: Yes Vital Signs On Initial Exam: Initial Vitals Temp Pulse Resp BP Pulse Ox 98.7 F 63 18 141/89 96 05/16/19 16:57 05/16/19 16:57 05/16/19 16:57 05/16/19 16:57 05/16/19 16:57 Vital Signs Reviewed: Yes Procedures - Sedation Patient Received Moderate/Deep Sedation with Procedure: No Diagnostics - Vital Signs Vital Signs Temp Pulse Resp BP Pulse Ox 05/16/19 16:57 98.7 F 63 18 141/89 96 - Laboratory Result Diagrams: 05/16/19 19:22 05/16/19 19:22 Lab Statement: Any lab studies that have been ordered have been reviewed, and results considered in the medical decision making process. Back Pain Course/Dx - Course Course Of Treatment: 73 year old male presents to [facility] with a chief complaint of back pain secondary to a fall 3 weeks ago. Patient reports falling on his right side, which broke ribs and bruised his scapula and ulna. Over the last few weeks the bruising subsided but the back pain severely worsened. Patient describes the back pain as stiff and sore with a pain intensity of 8/10. He also reports numbness in his legs bilaterally, shoulder pain, and instability while ambulating. He reports that he has fallen at a much higher frequency in the last year. Patient reports difficulty urinating in the morning starting a week ago. He has no recent surgery on his back, but in 1975 he had an unsuccessful laminectomy on his V4 and V5. PMHx of ankle surgery secondary to a torn Achilles on his right side. Physical exam is as follows: Appearance: Well -appearing, Well-nourished, elderly male lying in bed comfortably. Skin: Warm, dry, no obvious rash. Eyes: sclera anicteric, no conjunctival pallor. ENT: mucous membranes moist, pharynx appears normal. Neck: Supple, nontender. Respiratory: Clear to auscultation, no signs of respiratory distress. Cardiovascular: Normal S1, S2. No murmurs. Normal distal pulses in tibial and radial bilaterally. Abdomen: Soft, nontender, normal active bowel sounds present. Musculoskeletal: Normal, Strength/ROM Intact, There is no rigidity or tremor noted. Symmetrical proximal weakness in lower extremities. Patient has trouble going from a seated to standing position. Neurological: A&Ox3, awake and alert, mentation is normal, speech is fluent and appropriate, Level of consciousness nml. The patient is alert and oriented. Cranial nerves are grossly intact. Gaze is conjugate and without nystagmus. Peripheral vision is intact to confrontation. There are no gross sensory abnormalities to light touch. There is no truncal or fine motor ataxia. Gait is normal. No deep tendon reflex absent bilaterally in knees and ankles. His toes are not upgoing. No clonus on ankle jerk. Psychiatric: affect is normal, does not appear anxious or depressed. During ED course, patient refused MRI L-Spine, citing that he has a PSHx of renal stent implantation in 2002. Patient has not had an MRI since the surgery. Signing out patient from Dr. Cuevas to Dr. Young at change of shift at 1900 on 05/16/19, pending MRI L-Spine and disposition. - Diagnoses Provider Diagnoses: Lumbar disc herniation, Low back pain, Lower extremity weakness Discharge ED - Sign-Out/Discharge Documenting (check all that apply): Sign-Out Patient Signing out patient TO: Allison Young - Signing out patient from Dr. Cuevas to Dr. Young at change of shift at 1900 on 05/16/19, pending MRI L-Spine and disposition. - Discharge Plan Condition: Stable Disposition: HOME Patient Education Materials: Lumbar Disc Herniation (ED), Weakness (ED), Back Pain (ED) Referrals: Tiffanie Booth MD [Primary Care Provider] - 3 Days Additional Instructions: PLEASE FOLLOW UP WITH NEUROSURGERY IN THE MORNING AND YOUR PRIMARY CARE PROVIDER IN 2-3 DAYS. RETURN TO THE EMERGENCY DEPARTMENT FOR ANY NEW OR WORSENING SYMPTOMS. NEUROSURGERY'S PHONE NUMBER IS [phone] - Billing Disposition and Condition Condition: STABLE Disposition: Home - Attestation Statements Document Initiated by John: Yes Documenting Scribe: Boyd Zurita Provider For Whom John is Documenting (Include Credential): Dr. Kevin Cuevas Scribe Attestation: I, Boyd Zurita, scribed for Dr. Kevin Cuevas on 05/19/19 at 0200. Scribe Documentation Reviewed: Yes Provider Attestation: The documentation as recorded by the scribe, Boyd Zurita accurately reflects the service I personally performed and the decisions made by me, Dr. Kevin Cuevas Status of Scribe Document: Viewed
--- NOTE | 2019-05-16 19:05 | ED ---
Progress - Progress Note Progress Note: This pt is a sign out from Dr. Cuevas to Dr. Young at shift change 1900 pending MRI of his L-spine and disposition. - Results/Orders Results/Orders: His Lumbar Spine MRI shows the followin. No acute abnormality. 2. Mild to moderate central canal stenosis at L2-L3 and moderate central canal stenosis involving L3-L4, L4-L5 and L5-S1. ED physician has reviewed this report. Course/Dx - Course Course Of Treatment: This pt is a sign out from Dr. Cuevas to Dr. Young at shift change 1900 05/16/19 pending MRI of his L-spine and disposition. - Diagnoses Provider Diagnoses: Lumbar disc herniation, Low back pain, Lower extremity weakness Discharge ED - Sign-Out/Discharge Documenting (check all that apply): Patient Departure - discharge - Discharge Plan Condition: Stable Disposition: HOME Patient Education Materials: Lumbar Disc Herniation (ED), Weakness (ED), Back Pain (ED) Referrals: Tiffanie Booth MD [Primary Care Provider] - 3 Days Additional Instructions: PLEASE FOLLOW UP WITH NEUROSURGERY IN THE MORNING AND YOUR PRIMARY CARE PROVIDER IN 2-3 DAYS. RETURN TO THE EMERGENCY DEPARTMENT FOR ANY NEW OR WORSENING SYMPTOMS. NEUROSURGERY'S PHONE NUMBER IS [phone] - Billing Disposition and Condition Condition: STABLE Disposition: Home - Attestation Statements Document Initiated by John: Yes Documenting Scribe: Delbert Rider Provider For Whom Juanibe is Documenting (Include Credential): Allison Young MD Scribe Attestation: Delbert Reyes, scribed for Allison Young MD on 05/17/19 at 0345. Scribe Documentation Reviewed: Yes Provider Attestation: The documentation as recorded by the Delbert rios accurately reflects the service I personally performed and the decisions made by me, Allison Young MD Status of Scribe Document: Viewed Procedures - Sedation Patient Received Moderate/Deep Sedation with Procedure: No
[2019-05-16 19:32] LABS: ABS Basophils 0.1 10^3/ul (0-0.2); ABS Eosinophils 0.4 10^3/ul (0-0.6); ABS Lymphocytes 2.5 10^3/ul (1.0-4.8); ABS Neutrophils 5.6 10^3/ul (1.5-7.7); Hematocrit 39 % (42-52); Hemoglobin 13.3 g/dL (14.0-18.0); Lymphocyte % 26.2 %; Mean Corpuscular HGB Conc 34 g/dL (31-36); Mean Corpuscular Hemoglobin 32 pg (27-31); Mean Corpuscular Volume 94 fL (80-94); Mean Platelet Volume 9.4 fL (7.4-10.4); Platelet Count 215 10^3/uL (150-450); Red Blood Count 4.18 10^6 /uL (4.18-5.48); Red Cell Distribution Width 15 % (10-15); White Blood Count 9.6 10^3/uL (3.5-10.8)
[2019-05-16 20:09] LABS: Albumin 3.8 g/dL (3.2-5.2); Albumin/Globulin Ratio 1.5 (1-3); BUN/Creatinine Ratio 10.7 (8-20); C Reactive Protein 4.56 mg/L (<8.01); Calcium 8.8 mg/dL (8.6-10.3); EGFR African American 15.7 (>60); Globulin 2.6 g/dL (2-4); Potassium 4.9 mmol/L (3.5-5.0); Total Bilirubin 0.3 mg/dL (0.2-1.0); Total Protein 6.4 g/dL (6.4-8.9)
[2019-05-16 20:18] LABS: TSH (Thyroid Stimulating Horm) 2.35 mcIU/mL (0.34-5.60)
[2019-05-16 20:55] LABS: Erythrocyte Sed Rate 12 mm/Hr (0-19)
[2019-05-16 21:23] VITALS: BP 167/100
== END 2019-05-16 21:22 | disposition home or self-care (01) ==
LOC: ED 16:56
DX: M51.26 Other intervertebral disc displacement, lumbar region (principal); M62.81 Muscle weakness (generalized); M48.061 Spinal stenosis, lumbar region without neurogenic claudication; M48.07 Spinal stenosis, lumbosacral region; I12.9 Hypertensive chronic kidney disease with stage 1 through stage 4 chronic kidney disease, or unspecified chronic kidney disease; N18.9 Chronic kidney disease, unspecified; J45.909 Unspecified asthma, uncomplicated; E78.00 Pure hypercholesterolemia, unspecified; K21.9 Gastro-esophageal reflux disease without esophagitis; N40.0 Benign prostatic hyperplasia without lower urinary tract symptoms; Z91.041 Radiographic dye allergy status; Z79.899 Other long term (current) drug therapy; Z95.5 Presence of coronary angioplasty implant and graft; Z91.81 History of falling
CPT/HCPCS: 36415; 72148; 80053; 83605; 84443; 85025; 85652; 86140; 99282

== ENCOUNTER 2021-06-03 02:16 | Inpatient (IN) ==
[2021-06-03] MEDS ORDERED: Lactated Ringers 1000 ml BAG 1,000 ML IV ONE ×2 (02:38→09:12)
[2021-06-03 03:23] LABS: ABS Eosinophils 0.1 10^3/ul (0-0.6); ABS Lymphocytes 1.6 10^3/ul (1.0-4.8); ABS Monocytes 0.7 10^3/ul (0-0.8); ABS Neutrophils 7.4 10^3/ul (1.5-7.7); Eosinophil % 1.4 %; Hematocrit 24 % (42-52); Hemoglobin 7.8 g/dL (14.0-18.0); Lymphocyte % 16.5 %; Mean Corpuscular HGB Conc 33 g/dL (31-36); Mean Corpuscular Hemoglobin 31 pg (27-31); Mean Corpuscular Volume 96 fL (80-94); Mean Platelet Volume 8.7 fL (7.4-10.4); Platelet Count 233 10^3/uL (150-450); Red Blood Count 2.48 10^6 /uL (4.18-5.48); Red Cell Distribution Width 17 % (10-15)
[2021-06-03 03:29] LABS: Activated Partial Thrombo Time 27.9 seconds (26.0-38.0); INR 1.26 (0.86-1.15)
[2021-06-03 03:39] LABS: Albumin/Globulin Ratio 1.4 (1-3); Calcium 7.8 mg/dL (8.6-10.3); Globulin 2.1 g/dL (2-4); Total Bilirubin 0.3 mg/dL (0.2-1.0); Total Protein 5.1 g/dL (6.4-8.9)
[2021-06-03 03:40] LABS: Potassium 5.2 mmol/L (3.5-5.0)
[2021-06-03] MEDS ORDERED: Ondansetron 4 mg VIAL 2 MG/ML 2 ml VIAL IV PRN (04:25)
[2021-06-03] MEDS ORDERED: Pantoprazole VIAL 40 MG VIAL IV ONE (04:25)
[2021-06-03] MEDS ORDERED: Albuterol HFA INHALER 8 gm MDI INH PRN (04:35)
[2021-06-03] MEDS ORDERED: Prothrombin Complex Conc. DOSE = Units Factor IX (nine) IV SLOW PU ONE (05:10)
[2021-06-03] MEDS: Morphine 2 MG/ML SYRINGE IV PRN ×2 (05:56→13:27)
[2021-06-03] MEDS: Pantoprazole 80 mg in NS BAG 80 MG/250 ML BAG IV SCH ×2 (07:08→15:37)
[2021-06-03 09:24] LABS: ABS Basophils 0.1 10^3/ul (0-0.2); ABS Eosinophils 0.1 10^3/ul (0-0.6); ABS Lymphocytes 2.5 10^3/ul (1.0-4.8); ABS Monocytes 1.1 10^3/ul (0-0.8); Eosinophil % 1.1 %; Hematocrit 23 % (42-52); Hemoglobin 7.7 g/dL (14.0-18.0); Lymphocyte % 28.7 %; Mean Corpuscular HGB Conc 34 g/dL (31-36); Mean Corpuscular Hemoglobin 31 pg (27-31); Mean Corpuscular Volume 92 fL (80-94); Mean Platelet Volume 8.4 fL (7.4-10.4); Nucleated Red Blood Cells % 0.1; Platelet Count 190 10^3/uL (150-450); Red Cell Distribution Width 18 % (10-15); White Blood Count 8.8 10^3/uL (3.5-10.8)
[2021-06-03 09:30] LABS: INR 1.11 (0.86-1.15)
[2021-06-03 09:33] LABS: Rapid COVID-19 Molecular Undetected (Undetected)
[2021-06-03 09:43] LABS: Troponin I 0.02 ng/mL (<0.03)
[2021-06-03 10:22] LABS: % Iron Saturation 51 % (15-55); Iron 128 ug/dL (50-212); Total Iron Binding Capacity 252 mcg/dL (250-450); Transferrin 180 mg/dL (203-362); Unsaturated Iron Binding < 237 ug/dL
[2021-06-03 10:42] LABS: Ferritin 11.8 ng/mL (24-336)
[2021-06-03 13:06] LABS: Calcium 7.6 mg/dL (8.6-10.3); Potassium 4.9 mmol/L (3.5-5.0)
[2021-06-03] MEDS ORDERED: Midazolam 5 mg/5 ml VIAL 1 mg/ml 5 ml VIAL (5 mg) ONE (16:57)
[2021-06-03] MEDS ORDERED: Midazolam 10 mg/10 ml VIAL 1 mg/ml 10 ml VIAL (10 mg) ONE (16:57)
[2021-06-03] MEDS ORDERED: fentaNYL 100 mcg/2 ml 50 MCG/ML VIAL ONE (16:57)
[2021-06-03 18:45] LABS: Hematocrit 23 % (42-52); Hemoglobin 7.8 g/dL (14.0-18.0)
[2021-06-04 01:38] LABS: Hematocrit 25 % (42-52); Hemoglobin 7.9 g/dL (14.0-18.0)
[2021-06-04] MEDS: Pantoprazole 80 mg in NS BAG 80 MG/250 ML BAG IV SCH ×2 (02:07→14:14)
[2021-06-04] MEDS: HYDROcodone/ACETAMIN 5/325 mg TAB PO PRN ×3 (06:00→21:03)
[2021-06-04 06:44] LABS: ABS Eosinophils 0.2 10^3/ul (0-0.6); ABS Lymphocytes 1.6 10^3/ul (1.0-4.8); ABS Neutrophils 4.8 10^3/ul (1.5-7.7); Hematocrit 25 % (42-52); Hemoglobin 8.3 g/dL (14.0-18.0); Lymphocyte % 21.1 %; Mean Corpuscular HGB Conc 34 g/dL (31-36); Mean Corpuscular Hemoglobin 32 pg (27-31); Mean Corpuscular Volume 94 fL (80-94); Mean Platelet Volume 8.4 fL (7.4-10.4); Nucleated Red Blood Cells % 0.2; Platelet Count 182 10^3/uL (150-450); Red Blood Count 2.64 10^6 /uL (4.18-5.48); Red Cell Distribution Width 18 % (10-15); White Blood Count 7.8 10^3/uL (3.5-10.8)
[2021-06-04 07:01] LABS: Albumin 3.3 g/dL (3.2-5.2); Albumin/Globulin Ratio 1.7 (1-3); Calcium 8.3 mg/dL (8.6-10.3); Potassium 4.6 mmol/L (3.5-5.0); Total Bilirubin 0.3 mg/dL (0.2-1.0); Total Protein 5.3 g/dL (6.4-8.9)
[2021-06-04] MEDS ORDERED: Pantoprazole VIAL 40 MG VIAL IV SCH (21:00)
[2021-06-05] MEDS: Pantoprazole 80 mg in NS BAG 80 MG/250 ML BAG IV SCH (00:25)
[2021-06-05] MEDS ORDERED: HYDROcodone/ACETAMIN 5/325 mg TAB PO ONE ×2 (00:30)
[2021-06-05 05:54] LABS: ABS Eosinophils 0.4 10^3/ul (0-0.6); ABS Lymphocytes 2.2 10^3/ul (1.0-4.8); ABS Neutrophils 2.7 10^3/ul (1.5-7.7); Eosinophil % 6.9 %; Hematocrit 23 % (42-52); Hemoglobin 7.5 g/dL (14.0-18.0); Lymphocyte % 34.7 %; Mean Corpuscular HGB Conc 33 g/dL (31-36); Mean Corpuscular Hemoglobin 31 pg (27-31); Mean Corpuscular Volume 94 fL (80-94); Mean Platelet Volume 8.4 fL (7.4-10.4); Nucleated Red Blood Cells % 0.1; Platelet Count 175 10^3/uL (150-450); Red Blood Count 2.41 10^6 /uL (4.18-5.48); Red Cell Distribution Width 18 % (10-15); White Blood Count 6.4 10^3/uL (3.5-10.8)
[2021-06-05 06:13] LABS: Calcium 8.3 mg/dL (8.6-10.3); Potassium 4.2 mmol/L (3.5-5.0)
[2021-06-05] MEDS: HYDROcodone/ACETAMIN 5/325 mg TAB PO PRN ×2 (08:52→19:54)
[2021-06-05 12:15] LABS: Hematocrit 22 % (42-52); Hemoglobin 7.2 g/dL (14.0-18.0)
[2021-06-05 12:31] LABS: INR 1.01 (0.86-1.15)
[2021-06-05 12:32] LABS: Activated Partial Thrombo Time 24.8 seconds (26.0-38.0)
[2021-06-05] MEDS ORDERED: Ondansetron ODT 4 mg TAB 4 MG TAB SL PRN (14:35)
[2021-06-05] MEDS: Lidocaine PATCH 5% PATCH TRANSDERM SCH (18:27)
[2021-06-05] MEDS: Lidocaine Patch REMOVE PATCH PATCH OFF SCH (22:16)
[2021-06-05 23:27] LABS: Hematocrit 24 % (42-52); Hemoglobin 7.9 g/dL (14.0-18.0)
[2021-06-06 07:10] LABS: Hematocrit 25 % (42-52); Hemoglobin 8.4 g/dL (14.0-18.0); Mean Corpuscular HGB Conc 33 g/dL (31-36); Mean Corpuscular Hemoglobin 31 pg (27-31); Mean Corpuscular Volume 94 fL (80-94); Mean Platelet Volume 8.6 fL (7.4-10.4); Platelet Count 183 10^3/uL (150-450); Red Blood Count 2.71 10^6 /uL (4.18-5.48); Red Cell Distribution Width 18 % (10-15); White Blood Count 6.9 10^3/uL (3.5-10.8)
[2021-06-06 07:32] LABS: Calcium 8.5 mg/dL (8.6-10.3); Magnesium 2.3 mg/dL (1.9-2.7); Potassium 4.5 mmol/L (3.5-5.0)
[2021-06-06] MEDS: Lidocaine PATCH 5% PATCH TRANSDERM SCH (09:02)
[2021-06-06] MEDS: HYDROcodone/ACETAMIN 5/325 mg TAB PO PRN ×2 (09:05→20:18)
[2021-06-06] MEDS ORDERED: Lactulose 30 ml UDC PO ONE (09:57)
[2021-06-06] MEDS: Polyethylene Glycol 3350 17 GM PACKET PO SCH (11:02)
[2021-06-06 20:09] LABS: Hematocrit 24 % (42-52); Hemoglobin 7.9 g/dL (14.0-18.0)
[2021-06-06] MEDS: Lidocaine Patch REMOVE PATCH PATCH OFF SCH (22:38)
[2021-06-07] MEDS ORDERED: Benzocaine/Menthol LOZ PO PRN (05:43)
[2021-06-07] MEDS: Polyethylene Glycol 3350 17 GM PACKET PO SCH (09:17)
[2021-06-07] MEDS: Lidocaine PATCH 5% PATCH TRANSDERM SCH (09:17)
[2021-06-07 09:51] VITALS: BP 142/78
== END 2021-06-07 13:51 | disposition home or self-care (01) | DRG 383 ==
LOC: ED 02:16 → SUATTDRO 11:46 → ICU 11:46 → MEDTELE 06-04 14:03
PROVIDERS: ADMIT Hospitalist; ATTEND Internal Medicine

== ENCOUNTER 2021-10-10 16:24 | Inpatient (IN) ==
[2021-10-10 17:37] LABS: ABS Basophils 0.1 10^3/ul (0-0.2); ABS Eosinophils 0.4 10^3/ul (0-0.6); ABS Lymphocytes 2.1 10^3/ul (1.0-4.8); ABS Monocytes 0.9 10^3/ul (0-0.8); ABS Neutrophils 5.1 10^3/ul (1.5-7.7); Hematocrit 28 % (42-52); Hemoglobin 9.3 g/dL (14.0-18.0); Lymphocyte % 24.3 %; Mean Corpuscular HGB Conc 33 g/dL (31-36); Mean Corpuscular Hemoglobin 28 pg (27-31); Mean Corpuscular Volume 84 fL (80-94); Mean Platelet Volume 7.8 fL (7.4-10.4); Platelet Count 348 10^3/uL (150-450); Red Blood Count 3.31 10^6 /uL (4.18-5.48); Red Cell Distribution Width 19 % (10-15); White Blood Count 8.6 10^3/uL (3.5-10.8)
[2021-10-10 18:15] LABS: ALT 8 U/L (7-52); AST 12 U/L (13-39); Acetaminophen < 15 mcg/mL; Albumin 3.8 g/dL (3.2-5.2); Albumin/Globulin Ratio 1.6 (1-3); Alcohol, S < 13 mg/dL (<13); Alkaline Phosphatase 64 U/L (35-149); Anion Gap 10 mmol/L (2-11); Blood Urea Nitrogen 65 mg/dL (6-24); CO2 Carbon Dioxide 23 mmol/L (22-32); Calcium 9.5 mg/dL (8.6-10.3); Chloride 104 mmol/L (101-111); Globulin 2.4 g/dL (2-4); Glucose 100 mg/dL (70-100); Magnesium 2.5 mg/dL (1.9-2.7); Salicylate < 2.50 mg/dL (<30); Sodium 137 mmol/L (135-145); Total Protein 6.2 g/dL (6.4-8.9); eGFR CKD-EPI 12.5 (>60)
[2021-10-10 18:28] LABS: TSH Ultra Thyroid Stim Horm 2.24 mcIU/mL (0.34-5.60)
[2021-10-10 19:10] LABS: Urine Appearance Clear; Urine Bilirubin Negative (Negative); Urine Blood Negative (Negative); Urine Color Straw; Urine Glucose Negative (Negative); Urine Ketones Negative (Negative); Urine Nitrite Negative (Negative); Urine Protein Negative (Negative); Urine Specific Gravity 1.008 (1.002-1.030); Urine Urobilinogen Negative (Negative)
[2021-10-10 19:42] LABS: Urine Benzodiazepine Screen None Detected (None Detect); Urine Cannabinoids Screen None Detected (None Detect); Urine Opiates Screen Presumptive Positive (None Detect)
[2021-10-11] MEDS ORDERED: Albuterol HFA INHALER 8 gm MDI INH PRN (08:08)
[2021-10-11] MEDS ORDERED: fentaNYL PATCH 12 MCG/HR 1 PATCH TRANSDERM SCH (09:00)
[2021-10-11] MEDS ORDERED: dilTIAZem ER 120 mg CAP (NF) PO SCH (09:00)
[2021-10-11] MEDS: Haloperidol LIQ ORALSYR 2 MG/ML PO SCH ×2 (09:31→20:10)
[2021-10-11] MEDS: HYDROcodone/ACETAMIN 5/325 mg TAB PO PRN (14:05)
[2021-10-11] MEDS ORDERED: LORazepam 2 mg VIAL 1 ml IM ONE (23:13)
[2021-10-11] MEDS ORDERED: Lorazepam PYXIS KEY PRN (23:13)
[2021-10-11] MEDS ORDERED: Haloperidol 5 mg/ml SDV IV/IM 5 MG/ML AMP IM ONE (23:40)
[2021-10-12] MEDS ORDERED: LORazepam 2 mg VIAL 1 ml IM ONE (00:31)
[2021-10-12] MEDS ORDERED: Lorazepam PYXIS KEY PRN (00:31)
[2021-10-12] MEDS ORDERED: diPHENhydraMINE IV 50 MG/ML 1 ml VIAL (BENADRYL) IM ONE (00:32)
[2021-10-12] MEDS: Haloperidol LIQ ORALSYR 2 MG/ML PO SCH ×2 (09:19→19:31)
[2021-10-12] MEDS: HYDROcodone/ACETAMIN 5/325 mg TAB PO PRN (18:21)
[2021-10-13] MEDS: HYDROcodone/ACETAMIN 5/325 mg TAB PO PRN ×2 (09:46→17:00)
[2021-10-13] MEDS: Haloperidol LIQ ORALSYR 2 MG/ML PO SCH ×2 (09:46→20:21)
[2021-10-13] MEDS ORDERED: Calcium Carb (TUMS) 500 mg CHEW TAB PO ONE (20:06)
[2021-10-14] MEDS: HYDROcodone/ACETAMIN 5/325 mg TAB PO PRN ×4 (00:38→22:41)
[2021-10-14] MEDS: Haloperidol LIQ ORALSYR 2 MG/ML PO SCH ×2 (08:50→20:34)
[2021-10-14] MEDS ORDERED: Calcium Carb (TUMS) 500 mg CHEW TAB PO PRN (10:51)
[2021-10-14] MEDS: Triamcinolone 0.025% OINT 15 GM TUBE TOPICAL SCH ×2 (12:39→20:35)
[2021-10-14] MEDS: Lidocaine PATCH 5% PATCH TRANSDERM SCH (17:28)
[2021-10-14] MEDS ORDERED: Morphine 4 MG/ML VIAL (1 ml) IV ONE (22:34)
[2021-10-14] MEDS ORDERED: HYDROcodone/ACETAMIN 5/325 mg TAB PO ONE (22:37)
[2021-10-15 08:02] VITALS: BP 130/61
[2021-10-15] MEDS: Lidocaine PATCH 5% PATCH TRANSDERM SCH (10:24)
[2021-10-15] MEDS: Haloperidol LIQ ORALSYR 2 MG/ML PO SCH (10:24)
[2021-10-15] MEDS: HYDROcodone/ACETAMIN 5/325 mg TAB PO PRN (10:24)
[2021-10-15] MEDS: Triamcinolone 0.025% OINT 15 GM TUBE TOPICAL SCH (10:25)
== END 2021-10-15 11:55 | disposition home or self-care (01) | DRG 758 ==
LOC: EDHOLD 16:24 → ED 16:24 → MED 16:24 → OBSVTOIN 10-11 08:06 → MED 10-11 11:07
PROVIDERS: ADMIT Hospitalist; ATTEND Hospitalist